=== PATIENT | female | born 2000 | race Two or more races ===

== ENCOUNTER 2023-04-01 12:46 | Observation (INO) ==
[2023-04-01] MEDS ORDERED: ONDANSETRON INJ 2 MG/ML 2 ML VIAL IV STA ×2 (13:53→16:00)
[2023-04-01] MEDS ORDERED: KETOROLAC TROMETHAMINE 15 MG/ML VIAL IV STA (13:53)
[2023-04-01] MEDS ORDERED: SODIUM CHLORIDE 0.9% 1,000 ML IV ONE ×2 (13:53→16:00)
--- NOTE | 2023-04-01 13:59 | Emergency Department Note ---
Impression & Plan Nausea & vomiting, Acute dehydration, Abdominal pain ED Provider Note HISTORY OF PRESENT ILLNESS: Patient is a 22-year-old female presenting with cough, chest pain and nausea and vomiting. Patient reports that she went to the football game 3 days ago and has since developed symptoms. She reports multiple episodes of nausea and vomiting has been unable to keep anything down. She reports she initially started with chest congestion and a nonproductive cough. Denies any fevers at home. Reports generalized body aches. Currently complaining of generalized chest pain and generalized abdominal pain. Reports he has been unable to tolerate oral intake over the last few days. Denies any dysuria or hematuria. She is on OCPs. Reports no recent sick contact exposures. Patient reports she is on active chemotherapy for a clinical trial for medullary thyroid cancer. ROS: as above PHYSICAL EXAM: Constitutional: Patient appears in no acute distress. HENT: Head: Normocephalic and atraumatic. Eyes: EOMI, PERRL Mouth/Throat: Mucous membranes moist. Neck: Trachea midline. Neck supple. Cardiovascular: RRR, No murmurs, rubs or gallops. Intact distal pulses. Pulmonary/Chest: No respiratory distress. Breath sounds clear and equal bilaterally. No wheezes or rales. Abdominal: Abdomen soft, no rebound or guarding. Generalized TTP Musculoskeletal: No edema, tenderness or deformity noted. Skin: Warm and dry. No rash, erythema, pallor or cyanosis Psychiatric: Appropriate mood and affect for situation. Neurological: Alert and keenly responsive. CN II-XII grossly intact, moving all extremities equally and fully. MDM: - Vitals signs stable - History obtained via patient. Patient presents with cough, chest pain and nausea. Patient reports she was around multiple people 3 days ago and has since developed congestion and cough symptoms. She reports she had chest pain and feeling short of breath and has since developed body aches, nausea and vomiting. Reports has been unable to tolerate oral intake over the last few days. States she is actively on chemotherapy for a clinical trial for medullary thyroid cancer. Denies any fevers - Chronic conditions affecting care: medullary thyroid cancer - Differential diagnoses include, but are not limited to: Dehydration; electrolyte abnormality; appendicitis; PE; pneumonia; viral syndrome - Order placed for continuous cardiac monitoring. At this time, monitor showed rate of 75 bpm with normal sinus rhythm, per my interpretation. - External medical records reviewed. - EKG reviewed by myself showed normal sinus rhythm. Rate 72 bpm. QTc 418. No acute ischemic changes. - Laboratory workup interpreted by myself showed normal WBC; negative dimer; normal electrolytes; slightly elevated anion (12); normal troponin - CT abdomen/pelvis with IV contrast showed trace left pleural effusion and trace pericardial effusion. Also noted to have a small amount of ascites. No evidence of a bowel obstruction and a normal appendix are seen. - Viral respiratory panel negative for acute infection - CXR negative for pneumonia, per my interpretation. Radiologist notes peribronchial thickening bilaterally consistent with viral pneumonia. - Patient given 1L NS, 4 mg IV zofran and 15 mg IV toradol. On reassessment, patient is still complaining of nausea. She was given additional 1L NS and 4 mg IV zofran. On reassessment, patient is still complaining of nausea and had an episode of vomiting. She does not feel comfortable to be discharged home with oral antiemetics and scheduling for outpatient echo. - Discussion was had with public health social worker about patient's case and need for admission. - Hospitalist consulted for admission. - Patient mated to inpatient [facility] hospitalist service for further evaluation and management ASSESSMENT AND PLAN: Diagnosis: Abdominal pain; nausea and vomiting; acute dehydration; trace pleural effusion Plan: admit Past Med/Surg History Social History Smoking Status: Never smoker Feels Safe at Home: Yes Results & Data (ED) Vital Signs Vital Signs - 24 hr 04/01/23 13:00 04/01/23 13:50 04/01/23 14:04 Temperature 36.8 C Temperature Source Temporal Artery Scan Pulse Rate 105 H Pulse Rate [Apical] 78 74 Respiratory Rate 18 18 18 Respiratory Effort / Characteristics Non-Labored Respiratory Depth Normal Normal Normal Blood Pressure 119/83 Blood Pressure [Left Arm] 129/92 Blood Pressure Mean 95 Blood Pressure Mean [Left Arm] 104 Pulse Oximetry 99 99 Oxygen Delivery Method Room Air Room Air Sepsis Recent Fever Within 48 Hours No Sepsis New/Unexplained Change in Mental Status No Sepsis Action Taken by Nursing No Action Required 04/01/23 13:59 Temperature Temperature Source Pulse Rate 83 Pulse Rate [Apical] Respiratory Rate Respiratory Effort / Characteristics Respiratory Depth Blood Pressure Blood Pressure [Left Arm] Blood Pressure Mean Blood Pressure Mean [Left Arm] Pulse Oximetry Oxygen Delivery Method Sepsis Recent Fever Within 48 Hours Sepsis New/Unexplained Change in Mental Status Sepsis Action Taken by Nursing Laboratory Data 04/01/23 13:45 04/01/23 13:45 Lab Results 04/01/23 04/01/23 04/01/23 Range/Units 13:45 13:45 13:45 WBC 5.32 (4.8-10.8) K/ul RBC 5.44 H (4.20-5.40) M/uL Hgb 16.4 H (12.0-16.0) g/dl Hct 49.0 H (37.0-47.0) % MCV 90.1 (80.0-100.0) fL MCH 30.1 (25.0-34.0) pg MCHC 33.5 (32.0-36.0) g/dL RDW Std Deviation 46.7 H (36.4-46.3) fL RDW Coeff of Brandon 14.1 (11.5-14.5) % Plt Count 331 (130-400) K/uL MPV 9.2 L (9.4-12.4) fL Immature Gran % (Auto) 0.0 % Neut % (Auto) 71.4 % Lymph % (Auto) 22.6 % [place] % (Auto) 5.6 % Eos % (Auto) 0.2 % Baso % (Auto) 0.2 % Neut # (Auto) 3.80 (1.40-6.50) K/uL Lymph # (Auto) 1.20 (1.20-3.40) K/uL [place] # (Auto) 0.30 (0.11-0.59) K/uL Eos # (Auto) 0.01 (0.00-0.50) K/uL Baso # (Auto) 0.01 (0.00-0.20) K/uL Immature Gran # (Auto) 0.00 L (0.01-0.20) K/uL D-Dimer 210 (0-500) ug/L FEU Sodium (136-145) mmol/L Potassium (3.5-5.1) mmol/L Chloride (98-107) mmol/L Carbon Dioxide (21-32) mmol/L Anion Gap (3-11) BUN (6-23) mg/dl Creatinine (0.6-1.2) mg/dl Est Cr Clr Drug Dosing ml/min Est GFR ( Amer) ml/min Est GFR (Non-Af Amer) ml/min BUN/Creatinine Ratio (10-20) Glucose (70-99(Fasting)) mg/dl Calcium (8.6-10.3) mg/dl Total Bilirubin (0.2-1.0) mg/dl AST (13-39) U/L ALT (7-52) U/L Alkaline Phosphatase (34-104) U/L Troponin I High Sens (0-14) pg/ml Total Protein (6.0-8.3) gm/dl Albumin (3.4-5.0) gm/dl Globulin (2.5-4.0) gm/dl Albumin/Globulin Ratio (0.9-2) Adenovirus (PCR) Not Detected (NotDetected) B. pertussis DNA (PCR) Not Detected (NotDetected) B.parapertussis DNA PCR Not Detected (NotDetected) C. pneumoniae DNA (PCR) Not Detected (NotDetected) Coronavirus OC43 (PCR) Not Detected (NotDetected) Coronavirus HKU1 (PCR) Not Detected (NotDetected) Coronavirus 229E (PCR) Not Detected (NotDetected) SARS-CoV-2 (PCR) Not Detected (NotDetected) Coronavirus NL63 (PCR) Not Detected (NotDetected) Human Metapneumovir PCR Not Detected (NotDetected) Influenza Type A (PCR) Not Detected (NotDetected) Influenza Type B (PCR) Not Detected (NotDetected) M. pneumoniae (PCR) Not Detected (NotDetected) Parainfluenza 1 (PCR) Not Detected (NotDetected) Parainfluenza 2 (PCR) Not Detected (NotDetected) Parainfluenza 3 (PCR) Not Detected (NotDetected) Parainfluenza 4 (PCR) Not Detected (NotDetected) RSV (PCR) Not Detected (NotDetected) Entero/Rhino (PCR) Not Detected (NotDetected) 04/01/23 Range/Units 13:45 WBC (4.8-10.8) K/ul RBC (4.20-5.40) M/uL Hgb (12.0-16.0) g/dl Hct (37.0-47.0) % MCV (80.0-100.0) fL MCH (25.0-34.0) pg MCHC (32.0-36.0) g/dL RDW Std Deviation (36.4-46.3) fL RDW Coeff of Brandon (11.5-14.5) % Plt Count (130-400) K/uL MPV (9.4-12.4) fL Immature Gran % (Auto) % Neut % (Auto) % Lymph % (Auto) % [place] % (Auto) % Eos % (Auto) % Baso % (Auto) % Neut # (Auto) (1.40-6.50) K/uL Lymph # (Auto) (1.20-3.40) K/uL [place] # (Auto) (0.11-0.59) K/uL Eos # (Auto) (0.00-0.50) K/uL Baso # (Auto) (0.00-0.20) K/uL Immature Gran # (Auto) (0.01-0.20) K/uL D-Dimer (0-500) ug/L FEU Sodium 137 (136-145) mmol/L Potassium 3.7 (3.5-5.1) mmol/L Chloride 99 (98-107) mmol/L Carbon Dioxide 26 (21-32) mmol/L Anion Gap 12 H (3-11) BUN 7 (6-23) mg/dl Creatinine 0.79 (0.6-1.2) mg/dl Est Cr Clr Drug Dosing 71.1 ml/min Est GFR ( Amer) 124.0 ml/min Est GFR (Non-Af Amer) 107.0 ml/min BUN/Creatinine Ratio 8.9 L (10-20) Glucose 88 (70-99(Fasting)) mg/dl Calcium 10.0 (8.6-10.3) mg/dl Total Bilirubin 1.1 H (0.2-1.0) mg/dl AST 19 (13-39) U/L ALT 9 (7-52) U/L Alkaline Phosphatase 75 (34-104) U/L Troponin I High Sens < 2.3 (0-14) pg/ml Total Protein 8.4 H (6.0-8.3) gm/dl Albumin 4.7 (3.4-5.0) gm/dl Globulin 3.7 (2.5-4.0) gm/dl Albumin/Globulin Ratio 1.3 (0.9-2) Adenovirus (PCR) (NotDetected) B. pertussis DNA (PCR) (NotDetected) B.parapertussis DNA PCR (NotDetected) C. pneumoniae DNA (PCR) (NotDetected) Coronavirus OC43 (PCR) (NotDetected) Coronavirus HKU1 (PCR) (NotDetected) Coronavirus 229E (PCR) (NotDetected) SARS-CoV-2 (PCR) (NotDetected) Coronavirus NL63 (PCR) (NotDetected) Human Metapneumovir PCR (NotDetected) Influenza Type A (PCR) (NotDetected) Influenza Type B (PCR) (NotDetected) M. pneumoniae (PCR) (NotDetected) Parainfluenza 1 (PCR) (NotDetected) Parainfluenza 2 (PCR) (NotDetected) Parainfluenza 3 (PCR) (NotDetected) Parainfluenza 4 (PCR) (NotDetected) RSV (PCR) (NotDetected) Entero/Rhino (PCR) (NotDetected) Administered Medications Sodium Chloride (Nss) 1,000 mls @ 999 mls/hr IV .Q1H1M ONE Stop: 04/01/23 17:00 Last Admin: 04/01/23 16:04 Dose: 999 mls/hr Documented By: DAVID Discontinued Medications Sodium Chloride (Nss) 1,000 mls @ 999 mls/hr IV .Q1H1M ONE Stop: 04/01/23 14:53 Last Infusion: 04/01/23 15:04 Dose: 0 mls/hr Documented By: Admin: 04/01/23 14:02 Dose: 999 mls/hr Documented By: SAVI Ioversol (Optiray 320 100ml) 90 ml IV ONCE ONE Stop: 04/01/23 15:12 Last Admin: 04/01/23 15:11 Dose: 90 ml Documented By: MOONF Ketorolac Tromethamine (Ketorolac Tromethamine 15 Mg/Ml Vial) 15 mg IV NOW STA Stop: 04/01/23 13:54 Last Admin: 04/01/23 14:02 Dose: 15 mg Documented By: SAVI Ondansetron HCl (Ondansetron Inj 2 Mg/Ml 2 Ml Vial) 4 mg IV NOW STA Stop: 04/01/23 13:54 Last Admin: 04/01/23 14:02 Dose: 4 mg Documented By: SAVI Ondansetron HCl (Ondansetron Inj 2 Mg/Ml 2 Ml Vial) 4 mg IV NOW STA Stop: 04/01/23 16:01 Last Admin: 04/01/23 16:03 Dose: 4 mg Documented By: DAVID Imaging Data Radiologist's Impression: Abdomen/Pelvis CT 04/01/23 13:[address] WITH IV CONTRAST CT DOSE: 307.07 mGy.cm HISTORY: abdominal pain; vomiting TECHNIQUE: Multiaxial CT images of the abdomen and pelvis were performed following the use of intravenous contrast. A dose lowering technique was utilized adhering to the principles of ALARA. COMPARISON STUDY: None. FINDINGS: There is a trace left pleural effusion. There are emphysematous changes within the lung bases. Mild interstitial thickening within the right midlung zone is noted. No pneumoperitoneum. No pneumatosis. The right sacroiliac joint is fused. There are severe levoscoliosis of the visualized thoracolumbar spine with posterior spinal rods. No acute fractures identified. The spinal rods result in metallic artifact throughout the abdomen and pelvis resulting in suboptimal evaluation. Trace pericardial effusion. There are small bilateral hip effusions. Mild body wall edema. The liver, gallbladder, pancreas, spleen, left adrenal gland, and kidneys appear unremarkable. No hydronephrosis. The right adrenal gland is not well visualized. The main portal vein is patent. No retroperitoneal lymphadenopathy. Normal caliber abdominal aorta. No pelvic lymphadenopathy. There is a small amount of fluid within the deep pelvis. The bladder is distended. No bladder wall thickening. The uterus and bilateral adnexa are within normal limits. Questionable thickening of the colon is likely due to underdistention. Normal appendix. No dilated loops of bowel to suggest an obstruction. Mild diffuse mesenteric edema is noted. IMPRESSION: 1. No evidence for bowel obstruction. 2. Normal appendix. 3. Trace left pleural effusion, trace pericardial effusion, mild body wall edema, mild mesenteric edema, and a small amount of ascites. 4. Questionable thickening of the colon is likely due to underdistention. 5. Linear densities within the right midlung zone may represent chronic scarring. Mild congestive change or an interstitial pneumonitis could also have a similar appearance. 6. Emphysema. 7. Additional findings as described above. ACT 112: Negative or not required by law. Electronically signed by: Mango Cordero M.D. 04/01/2023 4:18 PM Chest X-Ray 04/01/23 15:22 XR chest 1V portable CLINICAL HISTORY: cough; congestion TECHNIQUE: Single frontal radiograph of the chest was obtained. Comparison: None available at the time of this dictation. FINDINGS: Scoliosis and posterior spinal fixation hardware is seen. The cardiomediastinal silhouette is normal. Faint opacity is in the bilateral mid lungs. Bronchial wall thickening is seen. No evidence of pleural effusion or pneumothorax. IMPRESSION: Peribronchial thickening and mild opacity in the bilateral mid lungs are seen compatible with infectious/inflammatory airways disease or viral pneumonia. ACT 112: Negative or not required by law. Electronically signed by: Vladislav Christina M.D. 04/01/2023 3:57 PM Discharge Plan Visit Data Chief Complaint: Illness Stated Complaint: CHEST PAIN, COUGH, PUKING, NAUSEA ED Provider: Claudia Moctezuma Discharge Problem: Nausea & vomiting, Acute dehydration, Abdominal pain Patient Disposition: Home - Self-Care Discharge Instructions Krames/Other Patient Handouts: ED Abd Pain Unk Cause Inf Activity Restrictions/Additional Instructions: Recommend staying well-hydrated over the next few days. Recommend alternating Tylenol and ibuprofen for pain management. Please return to the emergency department if you develop a persistently elevated fever, inability to tolerate oral intake, worsening chest pain or shortness of breath, or any new or worsening symptoms. Please follow closely with your primary care provider. Forms Stand Alone Forms: [facility], [facility] Emergency Department, Important Visit Information Referrals Referrals: [facility] [Primary Care Provider] -
[2023-04-01 14:07] LABS: Basophils # (auto) 0.01 K/uL (0.00-0.20); Basophils % (auto) 0.2 %; Eosinophils # (auto) 0.01 K/uL (0.00-0.50); Eosinophils % (auto) 0.2 %; Hemoglobin 16.4 g/dl (12.0-16.0); Lymphocytes % (auto) 22.6 %; Mean Corpuscular Hemoglobin 30.1 pg (25.0-34.0); Mean Corpuscular Hgb Conc 33.5 g/dL (32.0-36.0); Mean Corpuscular Volume 90.1 fL (80.0-100.0); Mean Platelet Volume 9.2 fL (9.4-12.4); Monocytes % (auto) 5.6 %; Neutrophils % (auto) 71.4 %; Platelet Count 331 K/uL (130-400); RDW Coefficient of Variation 14.1 % (11.5-14.5); RDW Standard Deviation 46.7 fL (36.4-46.3); Red Blood Count 5.44 M/uL (4.20-5.40); White Blood Count 5.32 K/ul (4.8-10.8)
[2023-04-01 14:26] LABS: D Dimer 210 ug/L FEU (0-500)
[2023-04-01 14:28] LABS: Albumin Level 4.7 gm/dl (3.4-5.0); Anion Gap 12 (3-11); Bilirubin,Total 1.1 mg/dl (0.2-1.0); Carbon Dioxide 26 mmol/L (21-32); Chloride 99 mmol/L (98-107); Potassium 3.7 mmol/L (3.5-5.1); Sodium 137 mmol/L (136-145)
[2023-04-01 14:33] LABS: Troponin I High Sensitivity < 2.3 pg/ml (0-14)
[2023-04-01 14:34] LABS: Alanine Aminotransferase 9 U/L (7-52); Albumin Globulin Ratio 1.3 (0.9-2); Alkaline Phosphatase 75 U/L (34-104); Aspartate Aminotransferase 19 U/L (13-39); BUN Creatinine Ratio 8.9 (10-20); Blood Urea Nitrogen 7 mg/dl (6-23); Creatinine Clr Calc Pharmacy 71.1 ml/min; Globulin 3.7 gm/dl (2.5-4.0); Glucose 88 mg/dl (70-99(Fasting)); Total Protein 8.4 gm/dl (6.0-8.3)
[2023-04-01 14:55] LABS: Adenovirus PCR Not Detected (NotDetected); Bordetella parapertussis PCR Not Detected (NotDetected); Bordetella pertussis PCR Not Detected (NotDetected); Chlamydia pneumoniae PCR Not Detected (NotDetected); Coronavirus 229E PCR Not Detected (NotDetected); Coronavirus CoV-2 (COVID19)PCR Not Detected (NotDetected); Coronavirus HKU1 PCR Not Detected (NotDetected); Coronavirus NL63 PCR Not Detected (NotDetected); Coronavirus OC43PCR Not Detected (NotDetected); Human Metapneumovirus PCR Not Detected (NotDetected); Influenza A PCR Not Detected (NotDetected); Influenza B PCR Not Detected (NotDetected); Mycoplasma pneumoniae PCR Not Detected (NotDetected); Parainfluenza Virus 1 PCR Not Detected (NotDetected); Parainfluenza Virus 2 PCR Not Detected (NotDetected); Parainfluenza Virus 3 PCR Not Detected (NotDetected); Parainfluenza Virus 4 PCR Not Detected (NotDetected); Respiratory Syncytial VirusPCR Not Detected (NotDetected); Rhinovirus/Enterovirus PCR Not Detected (NotDetected)
[2023-04-01] MEDS ORDERED: OPTIRAY 320 100ml IV ONE (15:11)
--- NOTE | 2023-04-01 15:58 | XRay Report ---
XR chest 1V portable CLINICAL HISTORY: cough; congestion TECHNIQUE: Single frontal radiograph of the chest was obtained. Comparison: None available at the time of this dictation. FINDINGS: Scoliosis and posterior spinal fixation hardware is seen. The cardiomediastinal silhouette is normal. Faint opacity is in the bilateral mid lungs. Bronchial wall thickening is seen. No evidence of pleur al effusion or pneumothorax. IMPRESSION: Peribronchial thickening and mild opacity in the bilateral mid lungs are seen compatible with infecti ous/inflammatory airways disease or viral pneumonia. ACT 112: Negative or not required by law. Electronically signed by: Vladislav Christina M.D. 04/01/2023 3:57 PM
--- NOTE | 2023-04-01 16:19 | CT Scan Report ---
ABDOMEN AND PELVIS CT WITH IV CONTRAST CT DOSE: 307.07 mGy.cm HISTORY: abdominal pain; vomiting TECHNIQUE: Multiaxial CT images of the abdomen and pelvis were performed following the use of intrave nous contrast. A dose lowering technique was utilized adhering to the principles of ALARA. COMPARISON STUDY: None. FINDINGS: There is a trace left pleural effusion. There are emphysematous changes within the lung bas es. Mild interstitial thickening within the right midlung zone is noted. No pneumoperitoneum. No pneu matosis. The right sacroiliac joint is fused. There are severe levoscoliosis of the visualized thorac olumbar spine with posterior spinal rods. No acute fractures identified. The spinal rods result in me tallic artifact throughout the abdomen and pelvis resulting in suboptimal evaluation. Trace pericardi al effusion. There are small bilateral hip effusions. Mild body wall edema. The liver, gallbladder, p ancreas, spleen, left adrenal gland, and kidneys appear unremarkable. No hydronephrosis. The right ad renal gland is not well visualized. The main portal vein is patent. No retroperitoneal lymphadenopath y. Normal caliber abdominal aorta. No pelvic lymphadenopathy. There is a small amount of fluid within the deep pelvis. The bladder is distended. No bladder wall thickening. The uterus and bilateral adne xa are within normal limits. Questionable thickening of the colon is likely due to underdistention. N ormal appendix. No dilated loops of bowel to suggest an obstruction. Mild diffuse mesenteric edema is noted. IMPRESSION: 1. No evidence for bowel obstruction. 2. Normal appendix. 3. Trace left pleural effusion, trace pericardial effusion, mild body wall edema, mild mesenteric krishna ma, and a small amount of ascites. 4. Questionable thickening of the colon is likely due to underdistention. 5. Linear densities within the right midlung zone may represent chronic scarring. Mild congestive meghan nge or an interstitial pneumonitis could also have a similar appearance. 6. Emphysema. 7. Additional findings as described above. ACT 112: Negative or not required by law. Electronically signed by: Mango Cordero M.D. 04/01/2023 4:18 PM
[2023-04-01 17:05] LABS: Appearance Urine Cloudy (Clear); Bacteria Urine Automated 3+ (Negative); Bilirubin Urine Negative (Negative); Blood Urine Negative (Negative); Color Urine Yellow; Epithelial Cell Urine Auto >30 /lpf (0-5); Glucose Urine UA Negative (Negative); Ketones Urine 2+ (Negative); Leukocyte Esterase Urine 1+ (Negative); Nitrite Urine Negative (Negative); Protein Urine Negative (Negative); RBC Urine Automated 0-4 /hpf (0-4); Specific Gravity Urine 1.043 (1.000-1.030); Urobilinogen Urine Negative (Negative); WBC Urine Automated >30 /hpf (0-5)
[2023-04-01] MEDS ORDERED: FAMOTIDINE 20 MG in SYRINGE 3 ML IV STA (17:21)
[2023-04-01 17:36] LABS: Cast Urine Automated 0 /lpf (0-5)
[2023-04-01 17:37] LABS: Pregnancy Test, Urine Negative (Negative)
[2023-04-01] MEDS ORDERED: PROCHLORPERAZINE 1 ML IV ONE (18:26)
[2023-04-01 18:32] LABS: Thyroid Stimulating Hormone 103.163 uIu/ml (0.300-4.500)
--- NOTE | 2023-04-01 18:41 | History & Physical Report ---
Date of Service April 01, 2023 Assessment & Plan (1) Acute dehydration: Plan: -Acute dehydration 2/2 persistent NBNB emesis likely due to viral gastroenteritis -RVP negative on admission -Hemodynamically stable, no hypotension since arrival -Currently without electrolyte abnormalities -S/p 2L NSS fluid repletion in ER -LR 125 cc/hr ongoing for now -Trend BMP, Mg (2) Nausea & vomiting: Plan: -Likely secondary to viral GI illness as above -Poor response to Zofran PRN, we will try Compazine 5 mg IV q6h PRN for now (3) Abdominal pain: Plan: -Likely secondary to viral GI illness as above -CTAP without acute findings underlying abdominal pain- nonspecific inflammatory findings such as edema and colonic distention -Tylenol 1000 mg IV q8h PRN for pain (4) Medullary thyroid carcinoma: Plan: -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 Pt states her TSH levels have always been high and ~100+ regularly as well -Continue levothyroxine (6) Chest pain: Plan: -Chest tightness exacerbated by cough with normal EKG + negative troponin -Unlikely to represent ACS, suspect secondary to viral illness -Continue to monitor for recurrence (7) History of spinal fusion for scoliosis: Plan: -Noted, stable -Continue Lyrica Plan FENGI: Clear liquids Code status: Full DVT prophylaxis: Low-risk, ambulation Isolation: None Disposition: Medical/surgical History of Present Illness Chief Complaint: Nausea/vomiting Primary Care Provider: [facility] Pt is 22 yo F with PMH medullary thyroid cancer with metastasis to lungs s/p thyroidectomy in 2008 and now on maintenance chemotherapy with selpercatinib since 2017, hypothyroidism, scoliosis s/p spinal fusion surgery in 2020 with subsequent neuropathy presenting with nausea and vomiting. Pt states she was in her usual state of health recently. She did attend the football game on 03/28 and reports onset of nausea starting in the project development engineer on 04/01. Later in the afternoon the nausea worsened and she experienced associated generalized abdominal pain of 5/10 severity, midsternal 7/10 chest tightness, dry cough, diffuse body aches and reduced appetite. She soon had several bouts of NBNB emesis, reports every 20 minutes and "dozens" of episodes. Denies fevers, chills, no sick contacts or recent travel, though she reports some fellow game attendees may have been ill. She is adherent to her BID selpercatinib and follows with [facility] in [place], last seen in 02/2023 without issue and due for f/u in 05/2023. She did have very similar symptoms 1 year prior in spring and felt better after receiving IV fluids in ER. Pt arrived to ER hemodynamically stable. Initial evaluation significant for TSH 103. CBC, CMP otherwise unremarkable. D-dimer, troponin, RVP negative. EKG NSR, no ST changes. CXR suggestive of viral pneumonia. CTAP w/ trace L pleural effusi on, trace pericardial effusion, mild body wall + mesenteric edema, small ascites, linear densities of R midlung representing chronic scarring vs interstitial pneumonitis, emphysema. ER interventions include 1L NSS bolus x2, Zofran 4 mg IV x2, Toradol 15 mg IV, famotidine 20 mg IV, Compazine 5 mg IV. At present, pt reports no relief from Zofran, no particular change in her symptoms. Has not had any worsening or new symptoms. Reports Zofran typically does not reduce her nausea once it begins. Allergies Allergy/AdvReac Type Severity Reaction Status Date / Time Iodinated Contrast Media Allergy Intermediate Hives Verified 04/01/23 17:12 latex Allergy Intermediate CATHETER--REDNESS, Verified 04/01/23 17:12 INFLAMATION Home Medications Medication Instructions Recorded Confirmed Type Control Pill 1 tab PO DAILY 04/01/23 04/01/23 History Unknown Chemo Drug 1 tab PO BID 04/01/23 04/01/23 History levothyroxine 112 mcg tablet 112 mcg PO 2XWK 04/01/23 04/01/23 History pregabalin 300 mg capsule 600 mg PO HS 04/01/23 04/01/23 History Past Med/Surg History Social History Smoking Status: Never smoker Second Hand Exposure: No; Do You Dip or Chew Tobacco: No; Hx Alcohol Use: No Hx Substance Use: No Preferred Language: Micronesian Communication Ability: Effective Quilt Sewer Required: No Beliefs That Will Affect Care: None Current Living Situation: Other Current Living Situation Comment: dorm Other Information That Helps Us Care for You: No Feels Safe at Home: Yes Safety Concerns: Feels Safe At This Time Assistive Devices: None Review of Systems Review of Systems: Per HPI Physical Exam Physical Exam: General: tired-appearing, no acute distress HEENT: PERRL, EOMI, conjunctivae clear without injection, anicteric sclerae, dry mucous membranes, clear oropharynx without exudate or erythema Neck: supple, trachea midline, no thyromegaly, no JVD, no cervical lymphaden opathy CV: RRR, normal S1 and S2, no murmurs Resp: CTAB, no increased work of breathing, no crackles or wheezes Abd: Soft, diffusely tender and greatest in LLQ, nondistended, no guarding or rebound, no hepatosplenomegaly, no fluid wave MSK: Normal bulk of all four extremities Neuro: AOx3, no focal motor or sensory deficits Skin: no rashes or lesions, warm and dry Ext: no LE peripheral edema or erythema, capillary refill <3s in all four extremities, 2+ LE peripheral pulses b/l Results & Data Results & Data Vital Signs (Past 12 Hours) Vital Signs Temp Pulse Pulse Resp BP BP Pulse Ox 04/01/23 18:23 76 04/01/23 16:37 70 18 151/109 H 100 04/01/23 13:59 83 04/01/23 14:04 74 18 129/92 99 04/01/23 13:50 78 18 04/01/23 13:00 36.8 C 105 H 18 119/83 99 O2 Del Method 04/01/23 18:23 04/01/23 16:37 Room Air 04/01/23 13:59 04/01/23 14:04 Room Air 04/01/23 13:50 04/01/23 13:00 Room Air Supervising Physician Co-Signing Physician Notes I personally saw and examined the patient. I verified all koo points and agree with resident physician Dr David Lucero, with the following exceptions and/or additions: 22 year old female presents to the ER with abdominal pain, intractable nausea and vomiting. Similar symptoms previously self limiting and supported with IV fluids and antiemetics. O/E Ill appearing, HS RRR, no murmurs, Chest CTAB, Abdo generalized tenderness, no guarding or rebound A/P Intractable nausea and vomiting - suspect viral gastroenteritis while on her chemotherapy causing much worse symptoms than would otherwise be expected. Self- limiting previous and would expect the same. Generalized edema - suspect this is due to her chemotherapy and shoudl follow up with her oncologist. Asymptomatic bacteruria - no specific urinary complaints, follow up urine culture but given asymptomatic would hold of antibiotics currently Elevated TSH - reportedly chronic per patient, suggest she follows up with her batch freezer operator regarding this, free T4 WNL. Resident Activity Tracking Resident Involvement: Resident Care Provided Care Provided: Adult [facility]
[2023-04-01] MEDS ORDERED: PROCHLORPERAZINE 5 MG/ML 2 ML VIAL IV ONE (18:45)
[2023-04-01 19:03] LABS: T4 Free Thyroxine 0.8 ng/dl (0.61-1.60)
[2023-04-01] MEDS ORDERED: ACETAMINOPHEN 1,000 MG/100 ML VIAL IV STA (19:14)
[2023-04-01] MEDS ORDERED: LORazepam 2 MG/1 ML VIAL IV STA (20:44)
[2023-04-01] MEDS ORDERED: PROCHLORPERAZINE 5 MG/ML 2 ML VIAL IV PRN (22:05)
[2023-04-01] MEDS ORDERED: LACTATED RINGER'S 1,000 ML IV SCH (22:05)
[2023-04-01] MEDS ORDERED: ACETAMINOPHEN 10MG/ML Custom 500 MG in EMPTY BAG 0 ML IV PRN (22:42)
--- NOTE | 2023-04-01 23:05 | Billing Data ---
Date of Service April 01, 2023 Coding Level of Care Code 61530 INT INP/OBS CARE
[2023-04-01] MEDS: PREGABALIN 150 MG CAP PO SCH (23:13)
[2023-04-02] MEDS: LEVOTHYROXINE SODIUM 112 MCG TABLET PO SCH (06:24)
[2023-04-02] MEDS: FAMOTIDINE 20 MG in SYRINGE 3 ML IV SCH ×2 (06:25→18:11)
--- NOTE | 2023-04-02 07:51 | Hospitalist Progress Note ---
Date of Service April 02, 2023 Assessment & Plan (1) Acute dehydration: Plan: -Acute dehydration 2/2 persistent NBNB emesis likely due to viral gastroenteritis -RVP negative on admission -Hemodynamically stable, no hypotension since arrival -S/p 2L NSS fluid repletion in ER -LR 125 cc/hr until improved PO intake -Trend BMP, Mg (2) Nausea & vomiting: Plan: -Likely secondary to viral GI illness as above -Poor response to Zofran PRN, continue Compazine 5 mg IV q6h PRN (3) Abdominal pain: Plan: -Likely secondary to viral GI illness as above -CTAP without acute findings underlying abdominal pain- nonspecific inflammatory findings such as edema and colonic distention -Tylenol 1000 mg IV q8h PRN for pain (4) Medullary thyroid carcinoma: Plan: -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 Pt states her TSH levels have always been high and ~100+ regularly as well -Continue levothyroxine (6) Chest pain: Plan: -Chest tightness exacerbated by cough with normal EKG + negative troponin -Unlikely to represent ACS, suspect secondary to viral illness -Continue to monitor for recurrence (7) History of spinal fusion for scoliosis: Plan: -Noted, stable -Continue Lyrica Plan FENGI: Clear liquids Code status: Full DVT prophylaxis: Low-risk, ambulation Isolation: None Admission and Anticipated Discharge Date Admission Date: April 01, 2023 Supervising Physician Co-Signing Physician Notes I personally examined the patient and verified koo points of history and exam, discussed case, and agree with decision making and plan documented by Dr. Esparza. Patient endorses some improvement of her symptoms however remains fatigued with nausea, denies additional vomiting or diarrhea. Patient in no acute distress, lungs clear b/l to auscultation, regular rate and rhythm, non tender abdomen with palpable mass LUQ (spleen?). Continue supportive measures. Subjective Pt seen at bedside, nauseous this morning, improved when saw her this afternoon. Minimal abdominal pain. Review of Systems Review of Systems: As per above Physical Exam Physical Exam: Constitutional: well-appearing, no acute distress HEENT: NCAT, no conjunctival injection CV: regular rhythm, no murmur appreciated, extremities well-perfused, no LE edema Resp: CTABL, no wheezes/rales/rhonchi appreciated, no increased work of breathing GI: soft, nondistended, nontender MSK: no gross deformities appreciated Skin: warm, dry, no rash appreciated Neuro: alert, oriented, no focal neurologic deficit appreciated Results & Data Results & Data Vital Signs (Past 12 Hours) Vital Signs Temp Pulse Resp BP Pulse Ox O2 Del Method 04/02/23 07:20 36.9 C 86 15 131/91 98 Room Air 04/01/23 22:00 Room Air 04/01/23 22:00 36.6 C 16 116/84 99 Room Air Resident Activity Tracking Resident Involvement: Resident Care Provided Care Provided: Adult Hospital Medicine
[2023-04-02] MEDS: PROCHLORPERAZINE 5 MG in SYRINGE 4 ML IV PRN (08:48)
[2023-04-02] MEDS ORDERED: ONDANSETRON INJ 2 MG/ML 2 ML VIAL IV STA (09:44)
[2023-04-02 09:45] LABS: Hematocrit (blood only) 42.3 % (37.0-47.0); Mean Corpuscular Hemoglobin 29.9 pg (25.0-34.0); Mean Corpuscular Hgb Conc 33.1 g/dL (32.0-36.0); Mean Corpuscular Volume 90.2 fL (80.0-100.0); Platelet Count 259 K/uL (130-400); RDW Coefficient of Variation 13.9 % (11.5-14.5); RDW Standard Deviation 46.2 fL (36.4-46.3); Red Blood Count 4.69 M/uL (4.20-5.40); White Blood Count 4.29 K/ul (4.8-10.8)
[2023-04-02] MEDS: LORazepam 2 MG/1 ML VIAL IV PRN ×2 (09:48→20:56)
[2023-04-02] MEDS: PREGABALIN 150 MG CAP PO SCH ×2 (09:49→20:12)
[2023-04-02 10:11] LABS: Albumin Globulin Ratio 1.4 (0.9-2); Albumin Level 3.8 gm/dl (3.4-5.0); BUN Creatinine Ratio 6.3 (10-20); Bilirubin,Total 1.1 mg/dl (0.2-1.0); Calcium 8.7 mg/dl (8.6-10.3); Creatinine Clr Calc Pharmacy 90.3 ml/min; Est GFR (African American) 148.6 ml/min; Est GFR (Non-African American) 128.2 ml/min; Globulin 2.8 gm/dl (2.5-4.0); Magnesium 2.1 mg/dl (1.7-2.4); Potassium 3.4 mmol/L (3.5-5.1); Total Protein 6.6 gm/dl (6.0-8.3)
--- NOTE | 2023-04-02 18:07 | Electrocardiogram Report ---
Test Reason : Blood Pressure : / mmHG Vent. Rate : 072 BPM Atrial Rate : 072 BPM P-R Int : 124 ms QRS Dur : 076 ms QT Int : 382 ms P-R-T Axes : 047 119 038 degrees QTc Int : 418 ms Normal sinus rhythm Right axis deviation T wave abnormality, consider anterior ischemia Abnormal ECG No previous ECGs available Confirmed by Daniel Escobar ([id number]) on 04/02/2023 6:07:31 PM Referred By: REFERRED SELF Confirmed By:Mk Escobar
--- NOTE | 2023-04-02 18:10 | Electrocardiogram Report ---
Test Reason : Blood Pressure : / mmHG Vent. Rate : 074 BPM Atrial Rate : 074 BPM P-R Int : 146 ms QRS Dur : 072 ms QT Int : 378 ms P-R-T Axes : 072 127 051 degrees QTc Int : 419 ms Normal sinus rhythm Right axis deviation Low voltage QRS Nonspecific T wave abnormality Abnormal ECG When compared with ECG of 01-APR-2023 13:37, (unconfirmed) No significant change was found Confirmed by Daniel Escobar ([id number] on 04/02/2023 6:10:32 PM Referred By: REFERRED SELF Confirmed By:Mk Escobar
[2023-04-02] MEDS: LACTATED RINGER'S 1,000 ML IV SCH (18:13)
[2023-04-02] MEDS: PATIENT'S OWN ORAL CONTRACEPTIVE PO SCH (18:46)
[2023-04-03] MEDS: LACTATED RINGER'S 1,000 ML IV SCH (03:49)
[2023-04-03] MEDS: FAMOTIDINE 20 MG in SYRINGE 3 ML IV SCH (05:43)
[2023-04-03] MEDS: LEVOTHYROXINE SODIUM 112 MCG TABLET PO SCH (05:43)
[2023-04-03 07:38] LABS: Basophils # (auto) 0.02 K/uL (0.00-0.20); Basophils % (auto) 0.5 %; Eosinophils # (auto) 0.05 K/uL (0.00-0.50); Eosinophils % (auto) 1.3 %; Hematocrit (blood only) 38.5 % (37.0-47.0); Hemoglobin 13.1 g/dl (12.0-16.0); Lymphocytes # (auto) 1.45 K/uL (1.20-3.40); Lymphocytes % (auto) 37.6 %; Mean Corpuscular Hemoglobin 30.4 pg (25.0-34.0); Mean Corpuscular Volume 89.3 fL (80.0-100.0); Mean Platelet Volume 9.4 fL (9.4-12.4); Monocytes # (auto) 0.38 K/uL (0.11-0.59); Monocytes % (auto) 9.8 %; Neutrophils # (auto) 1.96 K/uL (1.40-6.50); Neutrophils % (auto) 50.8 %; Platelet Count 286 K/uL (130-400); RDW Coefficient of Variation 13.9 % (11.5-14.5); RDW Standard Deviation 45.6 fL (36.4-46.3); Red Blood Count 4.31 M/uL (4.20-5.40); White Blood Count 3.86 K/ul (4.8-10.8)
[2023-04-03 07:50] LABS: Alanine Aminotransferase 5 U/L (7-52); Albumin Globulin Ratio 1.4 (0.9-2); Albumin Level 3.6 gm/dl (3.4-5.0); Alkaline Phosphatase 45 U/L (34-104); Anion Gap 7 (3-11); Aspartate Aminotransferase 13 U/L (13-39); Bilirubin,Total 0.9 mg/dl (0.2-1.0); Blood Urea Nitrogen 5 mg/dl (6-23); Calcium 8.5 mg/dl (8.6-10.3); Carbon Dioxide 25 mmol/L (21-32); Chloride 104 mmol/L (98-107); Creatinine Clr Calc Pharmacy 113.8 ml/min; Est GFR (African American) > 150.0 ml/min; Est GFR (Non-African American) 138.4 ml/min; Globulin 2.6 gm/dl (2.5-4.0); Glucose 71 mg/dl (70-99(Fasting)); Magnesium 1.9 mg/dl (1.7-2.4); Potassium 3.5 mmol/L (3.5-5.1); Sodium 136 mmol/L (136-145); Total Protein 6.2 gm/dl (6.0-8.3)
[2023-04-03] MEDS: PROCHLORPERAZINE 5 MG in SYRINGE 4 ML IV PRN (08:59)
[2023-04-03] MEDS: PREGABALIN 150 MG CAP PO SCH (09:48)
[2023-04-03] MEDS: LORazepam 2 MG/1 ML VIAL IV PRN (09:48)
[2023-04-03] MEDS ORDERED: Nursing to Pharmacy Communication SCH (10:45)
[2023-04-03] MEDS: PATIENT'S OWN ORAL CONTRACEPTIVE PO SCH (10:48)
--- NOTE | 2023-04-03 11:15 | Discharge Summary ---
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 Pt states she was in her usual state of health recently. She did attend the football game on 03/28 and reports onset of nausea starting in the people manager on 04/01. Later in the afternoon the nausea worsened and she experienced associated generalized abdominal pain of 5/10 severity, midsternal 7/10 chest tightness, dry cough, diffuse body aches and reduced appetite. She soon had several bouts of NBNB emesis, reports every 20 minutes and "dozens" of episodes. Denies fevers, chills, no sick contacts or recent travel, though she reports some fellow game attendees may have been ill. She is adherent to her BID selpercatinib and follows with [facility] in [place], last seen in 02/2023 without issue and due for f/u in 05/2023. She did have very similar symptoms 1 year prior in spring and felt better after receiving IV fluids in ER. Pt arrived to ER hemodynamically stable. Initial evaluation significant for TSH 103. CBC, CMP otherwise unremarkable. D-dimer, troponin, RVP negative. EKG NSR, no ST changes. CXR suggestive of viral pneumonia. CTAP w/ trace L pleural effusion, trace pericardial effusion, mild body wall + mesenteric edema, small ascites, linear densities of R midlung representing chronic scarring vs interstitial pneumonitis, emphysema. ER interventions include 1L NSS bolus x2, Zofran 4 mg IV x2, Toradol 15 mg IV, famotidine 20 mg IV, Compazine 5 mg IV. At present, pt reports no relief from Zofran, no particular change in her symptoms. Has not had any worsening or new symptoms. Reports Zofran typically does not reduce her nausea once it begins. Principal Diagnosis Viral gastroenteritis Discharge Exam Constitutional: well-appearing, no acute distress HEENT: NCAT, no conjunctival injection CV: regular rhythm, no murmur appreciated, extremities well-perfused, no LE edema Resp: CTABL, no wheezes/rales/rhonchi appreciated, no increased work of breathing GI: soft, nondistended, nontender MSK: no gross deformities appreciated Skin: warm, dry, no rash appreciated Neuro: alert, oriented, no focal neurologic deficit appreciated Discharge Data Allergies Allergy/AdvReac Type Severity Reaction Status Date / Time Iodinated Contrast Media Allergy Intermediate Hives Verified 04/01/23 17:12 latex Allergy Intermediate CATHETER--REDNESS, Verified 04/01/23 17:12 INFLAMATION Consultations 04/01/23 16:33 ED Decision to Admit Stat Ordered Studies 04/01/23 13:57 CT Abd and Pelvis [CT abd pelvis IV con only] Stat Laboratory Results WBC 3.86 K/ul (4.8-10.8) L 04/03/23 06:49 RBC 4.31 M/uL (4.20-5.40) 04/03/23 06:49 Hgb 13.1 g/dl (12.0-16.0) 04/03/23 06:49 Hct 38.5 % (37.0-47.0) 04/03/23 06:49 MCV 89.3 fL (80.0-100.0) 04/03/23 06:49 MCH 30.4 pg (25.0-34.0) 04/03/23 06:49 MCHC 34.0 g/dL (32.0-36.0) 04/03/23 06:49 RDW Std Deviation 45.6 fL (36.4-46.3) 04/03/23 06:49 RDW Coeff of [place] 13.9 % (11.5-14.5) 04/03/23 06:49 Plt Count 286 K/uL (130-400) 04/03/23 06:49 MPV 9.4 fL (9.4-12.4) 04/03/23 06:49 Immature Gran % (Auto) 0.0 % 04/03/23 06:49 Neut % (Auto) 50.8 % 04/03/23 06:49 Lymph % (Auto) 37.6 % 04/03/23 06:49 [place] % (Auto) 9.8 % 04/03/23 06:49 Eos % (Auto) 1.3 % 04/03/23 06:49 Baso % (Auto) 0.5 % 04/03/23 06:49 Neut # (Auto) 1.96 K/uL (1.40-6.50) 04/03/23 06:49 Lymph # (Auto) 1.45 K/uL (1.20-3.40) 04/03/23 06:49 [place] # (Auto) 0.38 K/uL (0.11-0.59) 04/03/23 06:49 Eos # (Auto) 0.05 K/uL (0.00-0.50) 04/03/23 06:49 Baso # (Auto) 0.02 K/uL (0.00-0.20) 04/03/23 06:49 Immature Gran # (Auto) 0.00 K/uL (0.01-0.20) L 04/03/23 06:49 D-Dimer 210 ug/L FEU (0-500) 04/01/23 13:45 Sodium 136 mmol/L (136-145) 04/03/23 06:49 Potassium 3.5 mmol/L (3.5-5.1) 04/03/23 06:49 Chloride 104 mmol/L (98-107) 04/03/23 06:49 Carbon Dioxide 25 mmol/L (21-32) 04/03/23 06:49 Anion Gap 7 (3-11) 04/03/23 06:49 BUN 5 mg/dl (6-23) L 04/03/23 06:49 Creatinine 0.50 mg/dl (0.6-1.2) L 04/03/23 06:49 Est Cr Clr Drug Dosing 113.8 ml/min 04/03/23 06:49 Est GFR ( Amer) > 150.0 ml/min 04/03/23 06:49 Est GFR (Non-Af Amer) 138.4 ml/min 04/03/23 06:49 BUN/Creatinine Ratio 10.0 (10-20) 04/03/23 06:49 Glucose 71 mg/dl (70-99(Fasting)) 04/03/23 06:49 Calcium 8.5 mg/dl (8.6-10.3) L 04/03/23 06:49 Magnesium 1.9 mg/dl (1.7-2.4) 04/03/23 06:49 Total Bilirubin 0.9 mg/dl (0.2-1.0) 04/03/23 06:49 AST 13 U/L (13-39) 04/03/23 06:49 ALT 5 U/L (7-52) L 04/03/23 06:49 Alkaline Phosphatase 45 U/L (34-104) 04/03/23 06:49 Troponin I High Sens < 2.3 pg/ml (0-14) 04/01/23 13:45 Total Protein 6.2 gm/dl (6.0-8.3) 04/03/23 06:49 Albumin 3.6 gm/dl (3.4-5.0) 04/03/23 06:49 Globulin 2.6 gm/dl (2.5-4.0) 04/03/23 06:49 Albumin/Globulin Ratio 1.4 (0.9-2) 04/03/23 06:49 TSH 103.163 uIu/ml (0.300-4.500) H 04/01/23 13:45 Free T4 0.80 ng/dl (0.61-1.60) 04/01/23 13:45 Urine Color Yellow 04/01/23 16:34 Urine Appearance Cloudy (Clear) A 04/01/23 16:34 Urine pH 7.0 (4.5-7.5) 04/01/23 16:34 Ur Specific [place] 1.043 (1.000-1.030) H 04/01/23 16:34 Urine Protein Negative (Negative) 04/01/23 16:34 Urine Glucose (UA) Negative (Negative) 04/01/23 16:34 Urine Ketones 2+ (Negative) H 04/01/23 16:34 Urine Blood Negative (Negative) 04/01/23 16:34 Urine Nitrite Negative (Negative) 04/01/23 16:34 Urine Bilirubin Negative (Negative) 04/01/23 16:34 Urine Urobilinogen Negative (Negative) 04/01/23 16:34 Ur Leukocyte Esterase 1+ (Negative) H 04/01/23 16:34 Urine WBC (Auto) >30 /hpf (0-5) H 04/01/23 16:34 Urine RBC (Auto) 0-4 /hpf (0-4) 04/01/23 16:34 U Hyaline Cast (Auto) 0 /lpf (0-5) 04/01/23 16:34 U Epithel Cells (Auto) >30 /lpf (0-5) H 04/01/23 16:34 Urine Bacteria (Auto) 3+ (Negative) H 04/01/23 16:34 Urine Test Negative (Negative) 04/01/23 16:34 Adenovirus (PCR) Not Detected (NotDetected) 04/01/23 13:45 B. pertussis DNA (PCR) Not Detected (NotDetected) 04/01/23 13:45 B.parapertussis DNA PCR Not Detected (NotDetected) 04/01/23 13:45 C. pneumoniae DNA (PCR) Not Detected (NotDetected) 04/01/23 13:45 Coronavirus OC43 (PCR) Not Detected (NotDetected) 04/01/23 13:45 Coronavirus HKU1 (PCR) Not Detected (NotDetected) 04/01/23 13:45 Coronavirus 229E (PCR) Not Detected (NotDetected) 04/01/23 13:45 SARS-CoV-2 (PCR) Not Detected (NotDetected) 04/01/23 13:45 Coronavirus NL63 (PCR) Not Detected (NotDetected) 04/01/23 13:45 Human Metapneumovir PCR Not Detected (NotDetected) 04/01/23 13:45 Influenza Type A (PCR) Not Detected (NotDetected) 04/01/23 13:45 Influenza Type B (PCR) Not Detected (NotDetected) 04/01/23 13:45 M. pneumoniae (PCR) Not Detected (NotDetected) 04/01/23 13:45 Parainfluenza 1 (PCR) Not Detected (NotDetected) 04/01/23 13:45 Parainfluenza 2 (PCR) Not Detected (NotDetected) 04/01/23 13:45 Parainfluenza 3 (PCR) Not Detected (NotDetected) 04/01/23 13:45 Parainfluenza 4 (PCR) Not Detected (NotDetected) 04/01/23 13:45 RSV (PCR) Not Detected (NotDetected) 04/01/23 13:45 Entero/Rhino (PCR) Not Detected (NotDetected) 04/01/23 13:45 Impressions Abdomen/Pelvis CT 04/01/23 13:[address] WITH IV CONTRAST CT DOSE: 307.07 mGy.cm HISTORY: abdominal pain; vomiting TECHNIQUE: Multiaxial CT images of the abdomen and pelvis were performed following the use of intravenous contrast. A dose lowering technique was utilized adhering to the principles of ALARA. COMPARISON STUDY: None. FINDINGS: There is a trace left pleural effusion. There are emphysematous changes within the lung bases. Mild interstitial thickening within the right midlung zone is noted. No pneumoperitoneum. No pneumatosis. The right sacroiliac joint is fused. There are severe levoscoliosis of the visualized thoracolumbar spine with posterior spinal rods. No acute fractures identified. The spinal rods result in metallic artifact throughout the abdomen and pelvis resulting in suboptimal evaluation. Trace pericardial effusion. There are small bilateral hip effusions. Mild body wall edema. The liver, gallbladder, pancreas, spleen, left adrenal gland, and kidneys appear unremarkable. No hydronephrosis. The right adrenal gland is not well visualized. The main portal vein is patent. No retroperitoneal lymphadenopathy. Normal caliber abdominal aorta. No pelvic lymphadenopathy. There is a small amount of fluid within the deep pelvis. The bladder is distended. No bladder wall thickening. The uterus and bilateral adnexa are within normal limits. Questionable thickening of the colon is likely due to underdistention. Normal appendix. No dilated loops of bowel to suggest an obstruction. Mild diffuse mesenteric edema is noted. IMPRESSION: 1. No evidence for bowel obstruction. 2. Normal appendix. 3. Trace left pleural effusion, trace pericardial effusion, mild body wall edema, mild mesenteric edema, and a small amount of ascites. 4. Questionable thickening of the colon is likely due to underdistention. 5. Linear densities within the right midlung zone may represent chronic scarring. Mild congestive change or an interstitial pneumonitis could also have a similar appearance. 6. Emphysema. 7. Additional findings as described above. ACT 112: Negative or not required by law. Electronically signed by: Mango Cordero M.D. 04/01/2023 4:18 PM Chest X-Ray 04/01/23 15:22 XR chest 1V portable CLINICAL HISTORY: cough; congestion TECHNIQUE: Single frontal radiograph of the chest was obtained. Comparison: None available at the time of this dictation. FINDINGS: Scoliosis and posterior spinal fixation hardware is seen. The cardiomediastinal silhouette is normal. Faint opacity is in the bilateral mid lungs. Bronchial wall thickening is seen. No evidence of pleural effusion or pneumothorax. IMPRESSION: Peribronchial thickening and mild opacity in the bilateral mid lungs are seen compatible with infectious/inflammatory airways disease or viral pneumonia. ACT 112: Negative or not required by law. Electronically signed by: Vladislav Christina M.D. 04/01/2023 3:57 PM Hospital Course (1) Acute dehydration: -Acute dehydration 2/2 persistent NBNB emesis likely due to viral gastroenteritis -RVP negative on admission -Hemodynamically stable thorough admission - Appears euvolemic after repletion with IVF - Tolerating good PO intake (2) Nausea & vomiting: -Likely secondary to viral GI illness as above -Resolved prior to d/c - Script for zofran prn sent (3) Abdominal pain: -Likely secondary to viral GI illness as above -CTAP without acute findings underlying abdominal pain- nonspecific inflammatory findings such as edema and colonic distention -Pain resolved prior to d/c (4) Medullary thyroid carcinoma: -Known history of MTC with metastasis to lungs s/p thyroidectomy in 2008 and on maintenance selpercatinib since 2018 -Holding selpercatinib at present given possibility (though less likely given 5+ years of good tolerance) of her symptoms being attributed to side effect -Plan to resume on Thursday, if an issues when resuming should reach out to primary oncologist (5) Hypothyroidism: -Known history of acquired hypothyroidism s/p thyroidectomy for MTC -TSH > 100 on admission. Pt states her TSH levels have always been high and ~100+ regularly as well -Continue levothyroxine (6) Chest pain: -Chest tightness exacerbated by cough with normal EKG + negative troponin -Unlikely to represent ACS, suspect secondary to viral illness/anxiety (7) History of spinal fusion for scoliosis: -Noted, stable -Continue Lyrica Total Time Total Time Spent Total Time Spent (In Minutes): see attending attestation Discharge Plan Discharge Items Patient Disposition: Home - Self-Care Reason For Visit: NAUSEA/VOMITING Discharge Diagnosis: Viral gastroenteritis Activity: Per Instructions section Non-emergency contact: Primary Care Provider Call non-emergency contact if: you have any medication questions and your symptoms worsen Follow-up/Referrals: [place] [Primary Care Provider] - Diet: Regular Addtl Attending Provider Instructions: You were treated for a viral gastroenteritis. We treated you with fluids and anti-nauseas mediations. Be sure to continue to stay well hydrated. Wait to resume taking your selpercatinib, until Thursday. Then you can resume taking it as your normally would. If you have any issues once your resume it you should reach out to your oncologist. Pending Studies at Discharge: No Stand-Alone Forms: My [facility] Medications and DC Order Prescriptions: New ondansetron HCl 4 mg tablet 4 mg PO Q8H PRN (Reason: nausea and vomiting) 4 Days Qty: 30 0RF Continued levothyroxine 112 mcg Tablet 112 mcg PO 2XWK Rx Instructions: TAKES THURSDAY & SUNDAYS ONLY pregabalin 300 mg Capsule 600 mg PO HS Control Pill 1 tab PO DAILY Held Unknown Chemo Drug 1 tab PO BID Hold Instructions: Resume on 04/06/23. Resume on Thursday, if any issues when you restart contact your oncologist Discharge Orders: Discharge Order (Routine); Ordered 04/03/23 Ordered By: Angie Esparza Admission Data Admit Date/Time: 04/01/23 18:40 Attending Provider: Daniel Lam Admit Provider: David Lucero Primary Care Provider: [facility] Other Providers: Drake De Guzman Other Interventions: Discharge Summary Assessment (RN) Last Done: 04/03/23 16:49 Supervising Physician Co-Signing Physician Notes Attending attestation Pt seen and examined in concert with Dr. Esparza. In agreement with the documented findings as noted in the resident documentation with any exceptions or additions as noted here. Ongoing improvement in fatigue with minimal nausea and without vomiting. Tolerated full diet today without issue. On examination, S1/S2 nl RRR no MCG. CTAB. Abd NT/ND BS+ve palpable LUQ mass without imaging abnormality apparent on CT scan unchanged, non TTP Acute dehydation in the setting of intractable nausea/vomiting 2/2 viral gastroenteritis - improved s/p IV fluids and tolerating POI well. Ondansetron SL for symptom control on discharge. Metastatic medullary thyroid carcinoma - resume selpercatinib on discharge at home dose Hypothyroidism in the setting of above - TSH ongoing elevation on levothyroxine at baseline dose. Continue and encourage repeat at follow up. Else see resident documentation as noted. Total attending physician time spent with this patient's care on the day of discharge: 40 minutes. Resident Activity Tracking Resident Involvement: Resident Care Provided Care Provided: Adult [facility]
[2023-04-03] MEDS ORDERED: PATIENT'S OWN ORAL CONTRACEPTIVE PO SCH (21:00)
== END 2023-04-03 17:40 | disposition home or self-care (01) ==
LOC: 3N 12:46 → ED 12:46 → SUATTDRO 18:40 → 3N 22:35

== ENCOUNTER 2023-06-12 17:29 | Observation (INO) ==
[2023-06-12] MEDS ORDERED: SODIUM CHLORIDE 0.9% 1,000 ML IV ONE (17:56)
[2023-06-12] MEDS ORDERED: ONDANSETRON INJ 2 MG/ML 2 ML VIAL IV STA (18:07)
[2023-06-12] MEDS ORDERED: fentaNYL citrate PF 100 MCG/2 ML VIAL IV STA (18:07)
--- NOTE | 2023-06-12 18:14 | Emergency Department Note ---
Impression & Plan Chest pain, Nausea & vomiting ED Provider Note HISTORY OF PRESENT ILLNESS: Patient is a 23-year-old female presenting with nausea and vomiting, chest pain and shortness of breath. Patient states that every few months she gets episodes in which she has to come to the hospital secondary to profound nausea and persistent vomiting. Reports that she started vomiting 2 days ago has been unable to tolerate anything by mouth since. Denies any diarrhea. Denies any fevers. She reports substernal chest pain and pain in her epigastric abdominal region every time she takes a deep breath. 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 She is not on anticoagulation. Denies any history of PEs. She is on OCPs. Denies any recent sick contact exposures. She reports an abdominal surgical history of an ovarian tumor removal. Patient denies any history of drug use or marijuana use. Denies any fever ROS: as above PHYSICAL EXAM: Constitutional: Patient appears in no acute distress. HENT: Head: Normocephalic and atraumatic. Eyes: EOMI, PERRL Mouth/Throat: Mucous membranes moist. Neck: Trachea midline. Neck supple. Cardiovascular: Tachycardic with regular rhythm. No murmurs, rubs or gallops. Intact distal pulses. Pulmonary/Chest: No respiratory distress. Breath sounds clear and equal bilaterally. Tachypneic. Abdominal: Abdomen soft, no tenderness, rebound or guarding. Musculoskeletal: No edema, tenderness or deformity noted. Skin: Warm and dry. No rash, erythema, pallor or cyanosis Psychiatric: Appropriate mood and affect for situation. Neurological: Alert and keenly responsive. CN II-XII grossly intact, moving all extremities equally and fully. MDM: - Vitals signs showed tachycardia - History obtained via patient. Patient presents with nausea, vomiting, chest pain and shortness of breath. She states that every few months she gets episodes in which she has to come to the hospital secondary to profound nausea and persistent vomiting. She reports she started vomiting 2 days ago and has been unable to tolerate anything by mouth since. Denies any diarrhea or significant abdominal pain. Does locate some substernal chest pain and epigastric pain and states it hurts when she takes deep breath. Denies any PE history, but does have a remote history of DVTs after surgery. She is not on any anticoagulation. She is on OCPs. Denies any fevers - Chronic conditions affecting care: medullary thyroid cancer - Differential diagnoses include, but are not limited to: Acute coronary syndrome; pulmonary embolism; dissection; tension pneumothorax; esophageal rupture; pneumonia; viral syndrome - Order placed for continuous cardiac monitoring. At this time, monitor showed rate of 98 bpm with normal sinus rhythm, per my interpretation. - External medical records reviewed. Discharge summary dated 04/03/2023 was reviewed. Patient was admitted that time for persistent nausea and vomiting. She was admitted for viral gastroenteritis. - EKG reviewed by myself showed normal sinus rhythm. Rate 92 bpm. QTc 427. No acute ischemic changes. Significant amount of artifact obscuring baseline. - Laboratory workup interpreted by myself showed normal WBC; slight hyponatremia (Na 134); elevated anion gap (15); normal magnesium; normal glucose; normal troponin; negative dimer - CXR negative for pneumonia, per my interpretation - UA negative for infection. Noted to have ketonuria, consistent with patient's multiple episodes of vomiting - Biofire negative - Patient given 1L NS, 4 mg IV zofran and 50 mcg IV fentanyl for symptoms on arrival. On reassessment, she is still complaining of pain and nausea. Given 10 mg IV compazine, 25 mg IV benadryl and 30 mg IV toradol. - Patient still complaining of chest pain on reassessment. Given 40 mg IV solumedrol for contrast allergy and CT PE obtained. CT PE negative for pneumonia or PE. - Patient still complaining of pain on reassessment. Will admit for pain management and chest pain rule out. - Discussion was had with tire care manager about patient's case and need for observation - Hospitalist consulted for admission - [facility] and [facility] ASSESSMENT AND PLAN: Diagnosis: chest pain; nausea and vomiting; dehydration Plan: admit Past Med/Surg History Medical History (Updated 06/12/23 @ 23:08 by Claudia Moctezuma MD) Chest pain Abdominal pain Acute dehydration Nausea & vomiting Social History Smoking Status: Never smoker Second Hand Exposure: No; Do You Dip or Chew Tobacco: No; Hx Alcohol Use: No Hx Substance Use: No Preferred Language: Armenian Communication Ability: Effective Art Glass Setter Required: No Beliefs That Will Affect Care: None Current Living Situation: Other Current Living Situation Comment: dorm Feels Safe at Home: Yes Assistive Devices: None Allergies Allergies Allergy/AdvReac Type Severity Reaction Status Date / Time Iodinated Contrast Media Allergy Intermediate Hives Verified 06/12/23 19:54 latex Allergy Intermediate CATHETER--REDNESS, Verified 06/12/23 19:54 INFLAMATION Home Meds Home Medications Medication Instructions Recorded Confirmed Control Pill 1 tab PO DAILY 04/01/23 06/12/23 levothyroxine 112 mcg tablet 112 mcg PO 2XWK 04/01/23 06/12/23 pregabalin 300 mg capsule 600 mg PO HS 04/01/23 06/12/23 liothyronine 5 mcg tablet 5 mcg PO .QAM MON-Thu06/12/23 06/12/23 liothyronine 5 mcg tablet 10 mcg PO .QPM MON THRU Thu06/12/23 06/12/23 selpercatinib 80 mg capsule 160 mg PO BID 06/12/23 06/12/23 Results & Data (ED) Vital Signs Vital Signs - 24 hr 06/12/23 17:21 06/12/23 18:15 06/12/23 19:41 Temperature 37 C Temperature Source Temporal Artery Scan Pulse Rate 106 H 102 H Pulse Rate [Apical] 93 H Pulse Rhythm [Apical] Regular Pulse Strength [Apical] Normal Respiratory Rate 20 18 Respiratory Effort / Characteristics Non-Labored Spontaneous Non-Labored Spontaneous Respiratory Depth Normal Normal Respiratory Pattern Regular Regular Blood Pressure 126/90 Blood Pressure [Left Arm] 130/91 Blood Pressure Mean 102 Blood Pressure Mean [Left Arm] 104 Pulse Oximetry 100 100 Oxygen Delivery Method Room Air Room Air Sepsis Recent Fever Within 48 Hours No Sepsis New/Unexplained Change in Mental Status N/A Sepsis Action Taken by Nursing No Action Required 06/12/23 21:37 06/12/23 22:13 Temperature Temperature Source Pulse Rate 98 H Pulse Rate [Apical] 101 H Pulse Rhythm [Apical] Regular Pulse Strength [Apical] Normal Respiratory Rate 20 Respiratory Effort / Characteristics SOB on Exertion Respiratory Depth Normal Respiratory Pattern Blood Pressure Blood Pressure [Left Arm] 139/95 Blood Pressure Mean Blood Pressure Mean [Left Arm] 109 Pulse Oximetry 100 Oxygen Delivery Method Room Air Sepsis Recent Fever Within 48 Hours Sepsis New/Unexplained Change in Mental Status Sepsis Action Taken by Nursing Laboratory Data 06/12/23 18:36 06/12/23 18:36 Lab Results 06/12/23 06/12/23 06/12/23 Range/Units 18:36 22:31 Unknown WBC 6.31 (4.8-10.8) K/ul RBC 5.20 (4.20-5.40) M/uL Hgb 15.2 (12.0-16.0) g/dl Hct 44.6 (37.0-47.0) % MCV 85.8 (80.0-100.0) fL MCH 29.2 (25.0-34.0) pg MCHC 34.1 (32.0-36.0) g/dL RDW Std Deviation 39.4 (36.4-46.3) fL RDW Coeff of Brandon 12.6 (11.5-14.5) % Plt Count 316 (130-400) K/uL MPV 9.6 (9.4-12.4) fL Immature Gran % (Auto) 0.3 % Neut % (Auto) 72.7 % Lymph % (Auto) 17.9 % [place] % (Auto) 8.9 % Eos % (Auto) 0.0 % Baso % (Auto) 0.2 % Neut # (Auto) 4.59 (1.40-6.50) K/uL Lymph # (Auto) 1.13 L (1.20-3.40) K/uL [place] # (Auto) 0.56 (0.11-0.59) K/uL Eos # (Auto) 0.00 (0.00-0.50) K/uL Baso # (Auto) 0.01 (0.00-0.20) K/uL Immature Gran # (Auto) 0.02 (0.01-0.20) K/uL D-Dimer 260 (0-500) ug/L FEU Sodium 134 L (136-145) mmol/L Potassium 3.6 (3.5-5.1) mmol/L Chloride 100 (98-107) mmol/L Carbon Dioxide 19 L (21-32) mmol/L Anion Gap 15 H (3-11) BUN 4 L (6-23) mg/dl Creatinine 0.51 L (0.6-1.2) mg/dl Est Cr Clr Drug Dosing Not Reportable Est GFR ( Amer) > 150.0 ml/min Est GFR (Non-Af Amer) 136.5 ml/min BUN/Creatinine Ratio 7.8 L (10-20) Glucose 86 (70-99(Fasting)) mg/dl Calcium 10.2 (8.6-10.3) mg/dl Magnesium 2.3 (1.7-2.4) mg/dl Total Bilirubin 1.0 (0.2-1.0) mg/dl AST 14 (13-39) U/L ALT 6 L (7-52) U/L Alkaline Phosphatase 80 (34-104) U/L Troponin I High Sens < 2.3 2.3 (0-14) pg/ml Total Protein 8.1 (6.0-8.3) gm/dl Albumin 4.6 (3.4-5.0) gm/dl Globulin 3.5 (2.5-4.0) gm/dl Albumin/Globulin Ratio 1.3 (0.9-2) Urine Color Yellow Urine Appearance Clear (Clear) Urine pH 6.0 (4.5-7.5) Ur Specific [place] 1.014 (1.000-1.030) Urine Protein Negative (Negative) Urine Glucose (UA) Negative (Negative) Urine Ketones 4+ H (Negative) Urine Blood Negative (Negative) Urine Nitrite Negative (Negative) Urine Bilirubin Negative (Negative) Urine Urobilinogen Negative (Negative) Ur Leukocyte Esterase Negative (Negative) Adenovirus (PCR) Not Detected (NotDetected) B. pertussis DNA (PCR) Not Detected (NotDetected) B.parapertussis DNA PCR Not Detected (NotDetected) C. pneumoniae DNA (PCR) Not Detected (NotDetected) Coronavirus OC43 (PCR) Not Detected (NotDetected) Coronavirus HKU1 (PCR) Not Detected (NotDetected) Coronavirus 229E (PCR) Not Detected (NotDetected) SARS-CoV-2 (PCR) Not Detected (NotDetected) Coronavirus NL63 (PCR) Not Detected (NotDetected) Human Metapneumovir PCR Not Detected (NotDetected) Influenza Type A (PCR) Not Detected (NotDetected) Influenza Type B (PCR) Not Detected (NotDetected) M. pneumoniae (PCR) Not Detected (NotDetected) Parainfluenza 1 (PCR) Not Detected (NotDetected) Parainfluenza 2 (PCR) Not Detected (NotDetected) Parainfluenza 3 (PCR) Not Detected (NotDetected) Parainfluenza 4 (PCR) Not Detected (NotDetected) RSV (PCR) Not Detected (NotDetected) Entero/Rhino (PCR) Not Detected (NotDetected) Administered Medications Discontinued Medications Diphenhydramine HCl (Diphenhydramine 50 Mg/Ml Vial) 25 mg IV NOW STA Stop: 06/12/23 19:49 Last Admin: 06/12/23 20:05 Dose: 25 mg Documented By: FRED Fentanyl Citrate (Fentanyl Citrate Pf 100 Mcg/2 Ml Vial) 50 mcg IV NOW STA Stop: 06/12/23 18:08 Last Admin: 06/12/23 18:41 Dose: 50 mcg Documented By: PAPA Sodium Chloride (Nss) 1,000 mls @ 999 mls/hr IV .Q1H1M ONE Stop: 06/12/23 18:56 Last Infusion: 06/12/23 19:39 Dose: Infused Documented By: Admin: 06/12/23 18:36 Dose: 999 mls/hr Documented By: PAPA Prochlorperazine (Compazine) 2 mls @ 1 mls/min IV ONE ONE Stop: 06/12/23 19:49 Last Admin: 06/12/23 20:03 Dose: 1 mls/min Documented By: FRED Ioversol (Optiray 320 125ml) 119 ml IV ONCE ONE Stop: 06/12/23 22:03 Last Admin: 06/12/23 22:02 Dose: 119 ml Documented By: LINN Ketorolac Tromethamine (Ketorolac 30 Mg/Ml Vial) 30 mg IV NOW ONE Stop: 06/12/23 21:38 Last Admin: 06/12/23 21:45 Dose: 30 mg Documented By: LEONEL Methylprednisolone (Methylprednisolone 40 Mg/Ml Vial) 40 mg IV NOW STA Stop: 06/12/23 21:32 Last Admin: 06/12/23 21:35 Dose: 40 mg Documented By: LEONEL Ondansetron HCl (Ondansetron Inj 2 Mg/Ml 2 Ml Vial) 4 mg IV NOW STA Stop: 06/12/23 18:08 Last Admin: 06/12/23 18:37 Dose: 4 mg Documented By: PAPA Imaging Data Radiologist's Impression: Chest X-Ray 06/12/23 17:55 XR chest 1V portable CLINICAL HISTORY: Shortness of breath. COMPARISON STUDY: Chest radiograph April 01, 2023. FINDINGS: There is no pneumothorax or pleural effusion. Thoracolumbar spine scoliosis and scoliosis hardware is incidentally noted. Cardiomediastinal silhouette is stable. Interstitial thickening is unchanged. This is likely chronic. Underlying emphysema is better depicted on prior abdominal CT. There has been no change in appearance of the chest. IMPRESSION: 1. No acute cardiopulmonary findings. 2. Stable interstitial thickening with underlying emphysema, better depicted on prior abdominal CT. ACT 112: Negative or not required by law. Electronically signed by: Kwaku Deleon M.D. 06/12/2023 6:17 PM Chest CTA 06/12/23 21:29 CT ANGIOGRAM OF THE CHEST CLINICAL HISTORY: Dyspnea. Nausea and vomiting. Atypical chest pain. COMPARISON STUDY: Chest x-ray dated 06/12/2023. TECHNIQUE: Following the IV administration of 119 cc of Optiray 320, CT angiogram of the chest was performed from the upper abdomen to the thoracic inlet utilizing the pulmonary embolus protocol. Images are reviewed in the axial, sagittal, and coronal planes. 3-D MIPS images are created and assessed. The patient was premedicated for reported history of contrast allergy. IV contrast was then administered without complication. A dose lowering technique was utilized adhering to the principles of ALARA. The examination is significantly degraded by streak artifact from extensive metallic spinal hardware/spinal rods. There is also motion artifact. CT DOSE: 207.01 mGy.cm FINDINGS: Thyroid: Atrophic versus surgically absent. Thoracic aorta: The thoracic aorta is normal in caliber and demonstrates standard 3-vessel arch anatomy. No dissection is seen. Pulmonary vasculature: The pulmonary trunk is normal in caliber. There are no filling defects identified in main, lobar, or segmental pulmonary branches to suggest pulmonary embolus. Evaluation of the peripheral branches is degraded by motion artifact. Heart: The heart is normal in size and without pericardial effusion. Lungs and pleural spaces: Numerous cysts are seen throughout both lungs. There is no lobar consolidation or pleural effusion. The trachea and central airways are clear. Foci of parenchymal scarring are seen throughout both lungs. Dependent airspace opacities in the right lower lobe on image #116 could represent atelectasis versus a mild pneumonitis. Mediastinum: There is no mediastinal lymphadenopathy. Tatiana: Clear. Axillae: There is no axillary lymphadenopathy. Upper abdomen: Partially visualized upper abdominal viscera is within normal limits. Skeletal structures: The skeletal structures are osteopenic. There is moderate S-shaped thoracolumbar scoliosis with postsurgical change and spinal rods in place. The right interpedicular screw at T5 is located lateral to the pedicle. No lytic or blastic bony lesions are seen. IMPRESSION: 1. Streak and motion compromised examination. 2. There is no evidence of pulmonary embolus in the main, lobar, or segmental pulmonary arteries. 3. There is no lobar consolidation or pleural effusion. 4. Dependent airspace opacities in the right lower lobe could represent atelectasis versus a mild pneumonitis. Correlate clinically. 5. There are numerous small pulmonary cysts scattered throughout both lungs. These are nonspecific and could potentially be seen with Langerhans cell histiocytosis or lymphangioleiomyomatosis (ROUSSEAU). Consider nonemergent follow-up with pulmonology. 6. Thoracolumbar scoliosis with spinal rods in place. ACT 112: Negative or not required by law. Electronically signed by: Luis Angel Morris M.D. 06/12/2023 10:27 PM Discharge Plan Visit Data Chief Complaint: Flu Like Symptoms Stated Complaint: FLU LIKE SX, CP, COUGH ED Provider: Claudia Moctezuma Discharge Problem: Chest pain, Nausea & vomiting Forms Stand Alone Forms: My [facility] Prescriptions Prescriptions: No Action levothyroxine 112 mcg Tablet 112 mcg PO 2XWK Rx Instructions: TAKES THURSDAY & SUNDAYS ONLY pregabalin 300 mg Capsule 600 mg PO HS Control Pill 1 tab PO DAILY selpercatinib 80 mg Capsule 160 mg PO BID liothyronine 5 mcg Tablet 10 mcg PO .QPM MON THRU FRI Rx Instructions: 5 days week liothyronine 5 mcg Tablet 5 mcg PO .QAM MON-FRI Rx Instructions: 5 DAYS A WEEK Referrals Referrals: [place] [Primary Care Provider] -
--- NOTE | 2023-06-12 18:20 | XRay Report ---
XR chest 1V portable CLINICAL HISTORY: Shortness of breath. COMPARISON STUDY: Chest radiograph April 01, 2023. FINDINGS: There is no pneumothorax or pleural effusion. Thoracolumbar spine scoliosis and scoliosis h ardware is incidentally noted. Cardiomediastinal silhouette is stable. Interstitial thickening is unc hanged. This is likely chronic. Underlying emphysema is better depicted on prior abdominal CT. There has been no change in appearance of the chest. IMPRESSION: 1. No acute cardiopulmonary findings. 2. Stable interstitial thickening with underlying emphysema, better depicted on prior abdominal CT. ACT 112: Negative or not required by law. Electronically signed by: Kwaku Deleon M.D. 06/12/2023 6:17 PM
[2023-06-12 18:56] LABS: Basophils # (auto) 0.01 K/uL (0.00-0.20); Basophils % (auto) 0.2 %; Hematocrit (blood only) 44.6 % (37.0-47.0); Hemoglobin 15.2 g/dl (12.0-16.0); Immature Granulocytes # (auto) 0.02 K/uL (0.01-0.20); Immature Granulocytes % (auto) 0.3 %; Lymphocytes # (auto) 1.13 K/uL (1.20-3.40); Lymphocytes % (auto) 17.9 %; Mean Corpuscular Hemoglobin 29.2 pg (25.0-34.0); Mean Corpuscular Hgb Conc 34.1 g/dL (32.0-36.0); Mean Corpuscular Volume 85.8 fL (80.0-100.0); Mean Platelet Volume 9.6 fL (9.4-12.4); Monocytes # (auto) 0.56 K/uL (0.11-0.59); Monocytes % (auto) 8.9 %; Neutrophils # (auto) 4.59 K/uL (1.40-6.50); Neutrophils % (auto) 72.7 %; Platelet Count 316 K/uL (130-400); RDW Coefficient of Variation 12.6 % (11.5-14.5); RDW Standard Deviation 39.4 fL (36.4-46.3); White Blood Count 6.31 K/ul (4.8-10.8)
[2023-06-12 19:15] LABS: Alanine Aminotransferase 6 U/L (7-52); Albumin Globulin Ratio 1.3 (0.9-2); Albumin Level 4.6 gm/dl (3.4-5.0); Alkaline Phosphatase 80 U/L (34-104); Anion Gap 15 (3-11); Aspartate Aminotransferase 14 U/L (13-39); BUN Creatinine Ratio 7.8 (10-20); Blood Urea Nitrogen 4 mg/dl (6-23); Calcium 10.2 mg/dl (8.6-10.3); Carbon Dioxide 19 mmol/L (21-32); Chloride 100 mmol/L (98-107); Est GFR (African American) > 150.0 ml/min; Est GFR (Non-African American) 136.5 ml/min; Globulin 3.5 gm/dl (2.5-4.0); Glucose 86 mg/dl (70-99(Fasting)); Magnesium 2.3 mg/dl (1.7-2.4); Potassium 3.6 mmol/L (3.5-5.1); Sodium 134 mmol/L (136-145); Total Protein 8.1 gm/dl (6.0-8.3)
[2023-06-12 19:21] LABS: Troponin I High Sensitivity < 2.3 pg/ml (0-14)
[2023-06-12 19:22] LABS: D Dimer 260 ug/L FEU (0-500)
[2023-06-12] MEDS ORDERED: PROCHLORPERAZINE 2 ML IV ONE (19:48)
[2023-06-12] MEDS ORDERED: diphenhydrAMINE 50 MG/ML VIAL IV STA (19:48)
[2023-06-12 20:50] LABS: Adenovirus PCR Not Detected (NotDetected); Appearance Urine Clear (Clear); Bilirubin Urine Negative (Negative); Blood Urine Negative (Negative); Bordetella parapertussis PCR Not Detected (NotDetected); Bordetella pertussis PCR Not Detected (NotDetected); Chlamydia pneumoniae PCR Not Detected (NotDetected); Color Urine Yellow; Coronavirus 229E PCR Not Detected (NotDetected); Coronavirus CoV-2 (COVID19)PCR Not Detected (NotDetected); Coronavirus HKU1 PCR Not Detected (NotDetected); Coronavirus NL63 PCR Not Detected (NotDetected); Coronavirus OC43PCR Not Detected (NotDetected); Glucose Urine UA Negative (Negative); Human Metapneumovirus PCR Not Detected (NotDetected); Influenza A PCR Not Detected (NotDetected); Influenza B PCR Not Detected (NotDetected); Ketones Urine 4+ (Negative); Leukocyte Esterase Urine Negative (Negative); Mycoplasma pneumoniae PCR Not Detected (NotDetected); Nitrite Urine Negative (Negative); Parainfluenza Virus 1 PCR Not Detected (NotDetected); Parainfluenza Virus 2 PCR Not Detected (NotDetected); Parainfluenza Virus 3 PCR Not Detected (NotDetected); Parainfluenza Virus 4 PCR Not Detected (NotDetected); Protein Urine Negative (Negative); Respiratory Syncytial VirusPCR Not Detected (NotDetected); Rhinovirus/Enterovirus PCR Not Detected (NotDetected); Specific Gravity Urine 1.014 (1.000-1.030); Urobilinogen Urine Negative (Negative)
[2023-06-12] MEDS ORDERED: KETOROLAC 30 MG/ML VIAL IV ONE (21:37)
[2023-06-12] MEDS ORDERED: OPTIRAY 320 125ml IV ONE (22:02)
--- NOTE | 2023-06-12 22:29 | CT Scan Report ---
CT ANGIOGRAM OF THE CHEST CLINICAL HISTORY: Dyspnea. Nausea and vomiting. Atypical chest pain. COMPARISON STUDY: Chest x-ray dated 06/12/2023. TECHNIQUE: Following the IV administration of 119 cc of Optiray 320, CT angiogram of the chest was pe rformed from the upper abdomen to the thoracic inlet utilizing the pulmonary embolus protocol. Images are reviewed in the axial, sagittal, and coronal planes. 3-D MIPS images are created and assessed. T he patient was premedicated for reported history of contrast allergy. IV contrast was then administer ed without complication. A dose lowering technique was utilized adhering to the principles of ALARA. The examination is significantly degraded by streak artifact from extensive metallic spinal hardware /spinal rods. There is also motion artifact. CT DOSE: 207.01 mGy.cm FINDINGS: Thyroid: Atrophic versus surgically absent. Thoracic aorta: The thoracic aorta is normal in caliber and demonstrates standard 3-vessel arch anato my. No dissection is seen. Pulmonary vasculature: The pulmonary trunk is normal in caliber. There are no filling defects identif ied in main, lobar, or segmental pulmonary branches to suggest pulmonary embolus. Evaluation of the p eripheral branches is degraded by motion artifact. Heart: The heart is normal in size and without pericardial effusion. Lungs and pleural spaces: Numerous cysts are seen throughout both lungs. There is no lobar consolidat ion or pleural effusion. The trachea and central airways are clear. Foci of parenchymal scarring are seen throughout both lungs. Dependent airspace opacities in the right lower lobe on image #116 could represent atelectasis versus a mild pneumonitis. Mediastinum: There is no mediastinal lymphadenopathy. Tatiana: Clear. Axillae: There is no axillary lymphadenopathy. Upper abdomen: Partially visualized upper abdominal viscera is within normal limits. Skeletal structures: The skeletal structures are osteopenic. There is moderate S-shaped thoracolumbar scoliosis with postsurgical change and spinal rods in place. The right interpedicular screw at T5 is located lateral to the pedicle. No lytic or blastic bony lesions are seen. IMPRESSION: 1. Streak and motion compromised examination. 2. There is no evidence of pulmonary embolus in the main, lobar, or segmental pulmonary arteries. 3. There is no lobar consolidation or pleural effusion. 4. Dependent airspace opacities in the right lower lobe could represent atelectasis versus a mild pne umonitis. Correlate clinically. 5. There are numerous small pulmonary cysts scattered throughout both lungs. These are nonspecific an d could potentially be seen with Langerhans cell histiocytosis or lymphangioleiomyomatosis (ROUSSEAU). 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 6. Thoracolumbar scoliosis with spinal rods in place. ACT 112: Negative or not required by law. Electronically signed by: Luis Angel Morris M.D. 06/12/2023 10:27 PM
--- NOTE | 2023-06-12 23:54 | History & Physical Report ---
Date of Service June 12, 2023 Assessment & Plan (1) Nausea & vomiting: Plan: 23yo Female with PMH medullary thyroid cancer s/p resection now with hypothyroidism, peripheral neuropathy here for 2 days nausea vomitting chest pain. Chest Pain -with nausea and vomitting -in ED received compazine toradol fentanyl NSS benadryl -tropx2 wnl, EKG wnl WBC wnl -CTA chest: There is no evidence of pulmonary embolus in the main, lobar, or segmental pulmonary arteries. There is no lobar consolidation or pleural effusion. Dependent airspace opacities in the right lower lobe could represent atelectasis versus a mild pneumonitis. -low suspicion for cardiac disease, PE, infection at this time -possibly 2/2 viral gastritis -continue PRN compazine -trend cbc, bmp Pulmanary Cysts CTA chest: There are numerous small pulmonary cysts scattered throughout both lungs. These are nonspecific and could potentially be seen with Langerhans cell histiocytosis or lymphangioleiomyomatosis (ROUSSEAU). -Consider nonemergent follow-up with pulmonology. Hypothyroidism -continue home medications FENa: regular Code Status: Full DVT PPX: ambulatory Dispo: med/surg Essence Conroy D.O. PGY 3, FCM (2) Chest pain: (3) Hypothyroidism: History of Present Illness Chief Complaint: CP Primary Care Provider: [facility] 23[facility] Female with PMH medullary thyroid cancer s/p resection now with hypothyroidism, peripheral neuropathy here for 2 days nausea vomitting chest pain. Patient states pain was accompanied with SOB, coughing, occasional abd pain secondary to nausea/vomitting, has been getting worse since onset. States pain is across her entire chest, no worse with inspiratory/expiration/sitting/laying.She denies any sick contacts, denies any fever or urinary difficulty. At home she tried zofran and pepto-bismol without improvement. In ED she was given toradol 30mg IV, methylprednisone 40mg IV, benadryl, fentanyl, compazine, and NSS 1L. At this time nausea and pain are improved. Of note patient plans to return home for holidays tomorrow. Allergies Allergy/AdvReac Type Severity Reaction Status Date / Time Iodinated Contrast Media Allergy Intermediate Hives Verified 06/12/23 19:54 latex Allergy Intermediate CATHETER--REDNESS, Verified 06/12/23 19:54 INFLAMATION Home Medications Medication Instructions Recorded Confirmed Type Control Pill 1 tab PO DAILY 04/01/23 06/12/23 History levothyroxine 112 mcg tablet 112 mcg PO 2XWK 04/01/23 06/12/23 History pregabalin 300 mg capsule 600 mg PO HS 04/01/23 06/12/23 History liothyronine 5 mcg tablet 5 mcg PO .QAM MON-FRI 06/12/23 06/12/23 History liothyronine 5 mcg tablet 10 mcg PO .QPM MON THRU FRI 06/12/23 06/12/23 History selpercatinib 80 mg capsule 160 mg PO BID 06/12/23 06/12/23 History Past Med/Surg History Medical History (Updated 06/12/23 @ 23:08 by Claudia Moctezuma MD) Chest pain Abdominal pain Acute dehydration Nausea & vomiting Social History Smoking Status: Never smoker Second Hand Exposure: No; Do You Dip or Chew Tobacco: No; Hx Alcohol Use: No Hx Substance Use: No Preferred Language: Albanian Communication Ability: Effective Vacuum Tester Cans Required: No Beliefs That Will Affect Care: None Current Living Situation: Other Current Living Situation Comment: dorm Feels Safe at Home: Yes Assistive Devices: None Physical Exam Constitutional: well developed, well nourished, cooperative and comfortable Eyes: PERRL, conjunctivae normal, anicteric sclerae ENMT: external ear and nose normal, oropharynx normal Neck: trachea midline, no thyromegaly Respiratory: normal respiratory effort, lungs clear to auscultation Cardiovascular: Rate/Rhythm: regular rate and regular rhythm Gastrointestinal (Abdomen): Inspection/Auscultation: abdomen normal to inspection Percussion/Palpation: + abdomen tender (mild, umbilical ) Skin: no rashes, warm and dry Results & Data Results & Data Vital Signs (Past 12 Hours) Vital Signs Temp Pulse Pulse Resp BP BP Pulse Ox 06/12/23 23:00 90 19 127/92 100 06/12/23 22:13 98 H 06/12/23 21:37 101 H 20 139/95 100 06/12/23 19:41 93 H 18 130/91 100 06/12/23 18:15 102 H 06/12/23 17:21 37 C 106 H 20 126/90 100 O2 Del Method 06/12/23 23:00 Room Air 06/12/23 22:13 11/17/23 21:37 Room Air 06/12/23 19:41 Room Air 06/12/23 18:15 06/12/23 17:21 Room Air Resident Activity Tracking Resident Involvement: Resident Care Provided Care Provided: Adult Hospital Medicine
[2023-06-13] MEDS ORDERED: PREGABALIN 150 MG CAP PO SCH ×2 (00:05→21:00)
[2023-06-13] MEDS ORDERED: PROCHLORPERAZINE 5 MG in SYRINGE 4 ML IV PRN (00:05)
[2023-06-13] MEDS: IBUPROFEN 600 MG TAB PO SCH ×2 (00:36→05:20)
[2023-06-13] MEDS ORDERED: PATIENT'S OWN ORAL CONTRACEPTIVE PO SCH (01:15)
[2023-06-13] MEDS: SELPERCATINIB PO SCH ×2 (01:23→08:42)
[2023-06-13 06:14] LABS: Hematocrit (blood only) 45.3 % (37.0-47.0); Hemoglobin 15.2 g/dl (12.0-16.0); Mean Corpuscular Hemoglobin 29.7 pg (25.0-34.0); Mean Corpuscular Hgb Conc 33.6 g/dL (32.0-36.0); Mean Corpuscular Volume 88.5 fL (80.0-100.0); Mean Platelet Volume 9.8 fL (9.4-12.4); Platelet Count 299 K/uL (130-400); RDW Coefficient of Variation 12.6 % (11.5-14.5); RDW Standard Deviation 41.1 fL (36.4-46.3); Red Blood Count 5.12 M/uL (4.20-5.40)
[2023-06-13 06:30] LABS: Anion Gap 11 (3-11); Calcium 9.1 mg/dl (8.6-10.3); Carbon Dioxide 20 mmol/L (21-32); Chloride 103 mmol/L (98-107); Sodium 134 mmol/L (136-145)
[2023-06-13] MEDS ORDERED: LEVOTHYROXINE SODIUM 112 MCG TABLET PO SCH (06:30)
--- NOTE | 2023-06-13 06:34 | Hospitalist Progress Note ---
Date of Service June 13, 2023 Assessment & Plan (1) Nausea & vomiting: Plan: 23yo Female with PMH medullary thyroid cancer s/p resection now with hypothyroidism, peripheral neuropathy here for 2 days nausea vomitting chest pain. Chest Pain -with nausea and vomiting -in ED received compazine toradol fentanyl NSS benadryl -tropx2 wnl, EKG wnl WBC wnl -CTA chest: There is no evidence of pulmonary embolus in the main, lobar, or segmental pulmonary arteries. There is no lobar consolidation or pleural effusion. Dependent airspace opacities in the right lower lobe could represent atelectasis versus a mild pneumonitis. -low suspicion for cardiac disease, PE, infection at this time -possibly 2/2 viral gastritis -continue PRN compazine -trend cbc, bmp Hyponatremia: Na 134 Pulmanary Cysts CTA chest: There are numerous small pulmonary cysts scattered throughout both lungs. These are nonspecific and could potentially be seen with Langerhans cell histiocytosis or lymphangioleiomyomatosis (ROUSSEAU). -Consider nonemergent follow-up with pulmonology. Hypothyroidism -continue home medications FENa: regular Code Status: Full DVT PPX: ambulatory Dispo: med/surg Essence Conroy D.O. PGY 3, FCM (2) Chest pain: (3) Hypothyroidism: Admission and Anticipated Discharge Date Admission Date: June 12, 2023 Subjective 23 yo Female with PMH medullary thyroid cancer s/p resection now with hypothyroidism, peripheral neuropathy here for 2 days nausea vomiting chest pain. Patient states pain was accompanied with SOB, coughing, occasional abd pain secondary to nausea/vomiting, has been getting worse since onset. States pain is across her entire chest, no worse with inspiratory/expiratio n/sitting/laying.She denies any sick contacts, denies any fever or urinary difficulty. At home she tried zofran and pepto-bismol without improvement. Of note patient plans to return home for holidays tomorrow. Review of Systems Review of Systems: as per HPI Physical Exam Constitutional: WD/WN, vitals as above Results & Data Results & Data Vital Signs (Past 12 Hours) Vital Signs Temp Pulse Pulse Pulse Resp BP Pulse Ox 06/13/23 02:00 36.9 C 89 16 117/80 100 06/13/23 01:00 96 H 18 133/95 100 06/12/23 23:00 90 19 127/92 100 06/12/23 22:13 98 H 06/12/23 21:37 101 H 20 139/95 100 06/12/23 19:41 93 H 18 130/91 100 O2 Del Method 06/13/23 02:00 Room Air 06/13/23 01:00 Room Air 06/12/23 23:00 Room Air 06/12/23 22:13 06/12/23 21:37 Room Air 06/12/23 19:41 Room Air Resident Activity Tracking Resident Involvement: Resident Care Provided Care Provided: Adult Hospital Medicine
[2023-06-13 06:36] LABS: BUN Creatinine Ratio 10.4 (10-20); Blood Urea Nitrogen 5 mg/dl (6-23); Creatinine Clr Calc Pharmacy 114.7 ml/min; Est GFR (African American) > 150.0 ml/min; Est GFR (Non-African American) 139.2 ml/min; Glucose 109 mg/dl (70-99(Fasting))
--- NOTE | 2023-06-13 12:03 | Discharge Summary ---
Date of Service June 13, 2023 Admission HPI Per Admitting Provider 23yo Female with PMH medullary thyroid cancer s/p resection now with hypothyroidism, peripheral neuropathy here for 2 days nausea vomitting chest pain. Patient states pain was accompanied with SOB, coughing, occasional abd pain secondary to nausea/vomitting, has been getting worse since onset. States pain is across her entire chest, no worse with inspiratory/expiration/sitting/laying.She denies any sick contacts, denies any fever or urinary difficulty. At home she tried zofran and pepto-bismol without improvement. In ED she was given toradol 30mg IV, methylprednisone 40mg IV, benadryl, fentanyl, compazine, and NSS 1L. At this time nausea and pain are improved. Of note patient plans to return home for holidays tomorrow. Admission Exam Per Admitting Provider constitutional: well developed, well nourished, cooperative and comfortable Eyes: PERRL, conjunctivae normal, anicteric sclerae ENMT: external ear and nose normal, oropharynx normal Neck: trachea midline, no thyromegaly Respiratory: normal respiratory effort, lungs clear to auscultation Cardiovascular: Rate/Rhythm: regular rate and regular rhythm Gastrointestinal (Abdomen): Inspection/Auscultation: abdomen normal to inspection Percussion/Palpation: + abdomen tender (mild, umbilical ) Skin: no rashes, warm and dry Principal Diagnosis Gastritis Nausea/vomits Discharge Exam Constitutional WD/WN, vitals as above Respiratory normal respiratory effort, lungs clear to auscultation Cardiovascular RRR, no murmur, no edema Gastrointestinal (Abdomen) normal bowel sounds, soft, nontender, no hepatosplenomegaly Musculoskeletal no cyanosis or clubbing, extremities motor strength 5/5 Skin no rashes, warm and dry Discharge Data Allergies Allergy/AdvReac Type Severity Reaction Status Date / Time Iodinated Contrast Media Allergy Intermediate Hives Verified 06/12/23 19:54 latex Allergy Intermediate CATHETER--REDNESS, Verified 06/12/23 19:54 INFLAMATION Consultations 06/12/23 23:18 ED Decision to Admit Stat Ordered Studies Labs 06/12/23 06/12/23 06/12/23 18:36 22:31 Unknown WBC 6.31 RBC 5.20 Hgb 15.2 Hct 44.6 MCV 85.8 MCH 29.2 MCHC 34.1 RDW Std Deviation 39.4 RDW Coeff of [place] 12.6 Plt Count 316 MPV 9.6 Immature Gran % (Auto) 0.3 Neut % (Auto) 72.7 Lymph % (Auto) 17.9 [place] % (Auto) 8.9 Eos % (Auto) 0.0 Baso % (Auto) 0.2 Neut # (Auto) 4.59 Lymph # (Auto) 1.13 L [place] # (Auto) 0.56 Eos # (Auto) 0.00 Baso # (Auto) 0.01 Immature Gran # (Auto) 0.02 D-Dimer 260 Sodium 134 L Potassium 3.6 Chloride 100 Carbon Dioxide 19 L Anion Gap 15 H BUN 4 L Creatinine 0.51 L Est Cr Clr Drug Dosing Not Reportable Est GFR ( Amer) > 150.0 Est GFR (Non-Af Amer) 136.5 BUN/Creatinine Ratio 7.8 L Glucose 86 Calcium 10.2 Magnesium 2.3 Total Bilirubin 1.0 AST 14 ALT 6 L Alkaline Phosphatase 80 Troponin I High Sens < 2.3 2.3 Total Protein 8.1 Albumin 4.6 Globulin 3.5 Albumin/Globulin Ratio 1.3 Urine Color Yellow Urine Appearance Clear Urine pH 6.0 Ur Specific [place] 1.014 Urine Protein Negative Urine Glucose (UA) Negative Urine Ketones 4+ H Urine Blood Negative Urine Nitrite Negative Urine Bilirubin Negative Urine Urobilinogen Negative Ur Leukocyte Esterase Negative Adenovirus (PCR) Not Detected B. pertussis DNA (PCR) Not Detected B.parapertussis DNA PCR Not Detected C. pneumoniae DNA (PCR) Not Detected Coronavirus OC43 (PCR) Not Detected Coronavirus HKU1 (PCR) Not Detected Coronavirus 229E (PCR) Not Detected SARS-CoV-2 (PCR) Not Detected Coronavirus NL63 (PCR) Not Detected Human Metapneumovir PCR Not Detected Influenza Type A (PCR) Not Detected Influenza Type B (PCR) Not Detected M. pneumoniae (PCR) Not Detected Parainfluenza 1 (PCR) Not Detected Parainfluenza 2 (PCR) Not Detected Parainfluenza 3 (PCR) Not Detected Parainfluenza 4 (PCR) Not Detected RSV (PCR) Not Detected Entero/Rhino (PCR) Not Detected 06/13/23 05:25 WBC 6.00 RBC 5.12 Hgb 15.2 Hct 45.3 MCV 88.5 MCH 29.7 MCHC 33.6 RDW Std Deviation 41.1 RDW Coeff of [place] 12.6 Plt Count 299 MPV 9.8 Immature Gran % (Auto) Neut % (Auto) Lymph % (Auto) [place] % (Auto) Eos % (Auto) Baso % (Auto) Neut # (Auto) Lymph # (Auto) [place] # (Auto) Eos # (Auto) Baso # (Auto) Immature Gran # (Auto) D-Dimer Sodium 134 L Potassium 4.0 Chloride 103 Carbon Dioxide 20 L Anion Gap 11 BUN 5 L Creatinine 0.48 L Est Cr Clr Drug Dosing 114.7 Est GFR ( Amer) > 150.0 Est GFR (Non-Af Amer) 139.2 BUN/Creatinine Ratio 10.4 Glucose 109 H Calcium 9.1 Magnesium Total Bilirubin AST ALT Alkaline Phosphatase Troponin I High Sens Total Protein Albumin Globulin Albumin/Globulin Ratio Urine Color Urine Appearance Urine pH Ur Specific [place] Urine Protein Urine Glucose (UA) Urine Ketones Urine Blood Urine Nitrite Urine Bilirubin Urine Urobilinogen Ur Leukocyte Esterase Adenovirus (PCR) B. pertussis DNA (PCR) B.parapertussis DNA PCR C. pneumoniae DNA (PCR) Coronavirus OC43 (PCR) Coronavirus HKU1 (PCR) Coronavirus 229E (PCR) SARS-CoV-2 (PCR) Coronavirus NL63 (PCR) Human Metapneumovir PCR Influenza Type A (PCR) Influenza Type B (PCR) M. pneumoniae (PCR) Parainfluenza 1 (PCR) Parainfluenza 2 (PCR) Parainfluenza 3 (PCR) Parainfluenza 4 (PCR) RSV (PCR) Entero/Rhino (PCR) Chest X-Ray 06/12/23 17:55 XR chest 1V portable CLINICAL HISTORY: Shortness of breath. COMPARISON STUDY: Chest radiograph April 01, 2023. FINDINGS: There is no pneumothorax or pleural effusion. Thoracolumbar spine scoliosis and scoliosis hardware is incidentally noted. Cardiomediastinal silhouette is stable. Interstitial thickening is unchanged. This is likely chronic. Underlying emphysema is better depicted on prior abdominal CT. There has been no change in appearance of the chest. IMPRESSION: 1. No acute cardiopulmonary findings. 2. Stable interstitial thickening with underlying emphysema, better depicted on prior abdominal CT. ACT 112: Negative or not required by law. Electronically signed by: Kwaku Deleon M.D. 06/12/2023 6:17 PM Chest CTA 06/12/23 21:29 CT ANGIOGRAM OF THE CHEST CLINICAL HISTORY: Dyspnea. Nausea and vomiting. Atypical chest pain. COMPARISON STUDY: Chest x-ray dated 06/12/2023. TECHNIQUE: Following the IV administration of 119 cc of Optiray 320, CT angiogram of the chest was performed from the upper abdomen to the thoracic inlet utilizing the pulmonary embolus protocol. Images are reviewed in the axial, sagittal, and coronal planes. 3-D MIPS images are created and assessed. The patient was premedicated for reported history of contrast allergy. IV contrast was then administered without complication. A dose lowering technique was utilized adhering to the principles of ALARA. The examination is significantly degraded by streak artifact from extensive metallic spinal hardware/spinal rods. There is also motion artifact. CT DOSE: 207.01 mGy.cm FINDINGS: Thyroid: Atrophic versus surgically absent. Thoracic aorta: The thoracic aorta is normal in caliber and demonstrates standard 3-vessel arch anatomy. No dissection is seen. Pulmonary vasculature: The pulmonary trunk is normal in caliber. There are no filling defects identified in main, lobar, or segmental pulmonary branches to suggest pulmonary embolus. Evaluation of the peripheral branches is degraded by motion artifact. Heart: The heart is normal in size and without pericardial effusion. Lungs and pleural spaces: Numerous cysts are seen throughout both lungs. There is no lobar consolidation or pleural effusion. The trachea and central airways are clear. Foci of parenchymal scarring are seen throughout both lungs. Dependent airspace opacities in the right lower lobe on image #116 could represent atelectasis versus a mild pneumonitis. Mediastinum: There is no mediastinal lymphadenopathy. [place]: Clear. Axillae: There is no axillary lymphadenopathy. Upper abdomen: Partially visualized upper abdominal viscera is within normal limits. Skeletal structures: The skeletal structures are osteopenic. There is moderate S-shaped thoracolumbar scoliosis with postsurgical change and spinal rods in pl debi. The right interpedicular screw at T5 is located lateral to the pedicle. No lytic or blastic bony lesions are seen. IMPRESSION: 1. Streak and motion compromised examination. 2. There is no evidence of pulmonary embolus in the main, lobar, or segmental pulmonary arteries. 3. There is no lobar consolidation or pleural effusion. 4. Dependent airspace opacities in the right lower lobe could represent atelectasis versus a mild pneumonitis. Correlate clinically. 5. There are numerous small pulmonary cysts scattered throughout both lungs. These are nonspecific and could potentially be seen with Langerhans cell histiocytosis or lymphangioleiomyomatosis (ROUSSEAU). Consider nonemergent follow-up with pulmonology. 6. Thoracolumbar scoliosis with spinal rods in place. ACT 112: Negative or not required by law. Electronically signed by: Luis Angel Morris M.D. 06/12/2023 10:27 PM 06/12/23 21:29 CT for pulmonary embolism PE [CT angio chest PE protocol] Stat Hospital Course (1) Nausea & vomiting: (2) Chest pain: (3) Hypothyroidism: (4) Gastritis: Plan 23 yo Female with PMH medullary thyroid cancer s/p resection now with hypothyroidism, peripheral neuropathy here for 2 days nausea, vomiting and chest pain. Chest Pain - Nausea and vomiting also reported -Low likelihood of ischemic episode, negative work up - CTA: Negative for pulmonary embolus -Possibly occasioned by gastritis - Patient discharge with Famotidine (Pepcid) Hyponatremia: Na 134, likely due to episode of vomiting. Consider repeat BMP as outpatient Pulmonary Cysts Findings of CTA chest: There are numerous small pulmonary cysts scattered throughout both lungs. These are nonspecific and could potentially be seen with Langerhans cell histiocytosis or lymphangioleiomyomatosis (ROUSSEAU). -Consider nonemergent follow-up with pulmonology. Hypothyroidism -continue home medications Total Time Total Time Spent Total Time Spent (In Minutes): see attending attestation Discharge Plan Discharge Items Patient Disposition: Home - Self-Care Reason For Visit: CP Discharge Diagnosis: Chest pain Vomiting/ diarrhea Activity: Per Instructions section Non-emergency contact: Primary Care Provider Call non-emergency contact if: you have any medication questions, your symptoms worsen, your pain is unusual for you and your temperature is above 101 Follow-up/Referrals: [facility] [Primary Care Provider] - Diet: Regular Addtl Attending Provider Instructions: You were admitted to the hospital due to chest pain , nausea and vomiting. You were treated with IV fluids and medications for the nausea We rule out any cardiology or pulmonary etiology for your pain chest. We recommend Pepcid daily A discharge summary will be sent to your primary care physician to ensure continuity of care. Please bring this discharge summary with you to your next office appointment so that your provider can review it at that time. Follow-up appointments: Make a follow-up appointment with your PCP within the next week. It is very important that you follow up with them shortly after discharge from the hospital. Medications: Your medication list has been reviewed and reconciled upon discharge to ensure accuracy and continuity of care. An updated list of all your medications is included with your hospital discharge paperwork. Please review this list closely, and make note of any changes. Take your medications as instructed; do not skip a dose of your medicines. Make sure all of your doctors know every medicine you are taking (including [id number] medicines, vitamins, and supplements). Call your primary care provider before taking any new medicines (including over- the- counter medicines, vitamins, and supplements), because some of these may interact with your current medications, or may make your symptoms worse. Tell your primary care provider if you cannot afford your medications. CALL 911 OR GO TO THE EMERGENCY DEPARTMENT if you experience any of the following: Sudden, severe abdominal pain or nausea/vomiting Severe chest pain, or chest pain that radiates (moves) to your jaw or arm Sudden, severe shortness of breath or difficulty breathing Thank you for allowing us to participate in your care. Pending Studies at Discharge: No Stand-Alone Forms: My [facility] Immunetrics, Smoking Cessation Medications and DC Order Prescriptions: New famotidine [Pepcid] 20 mg tablet 20 mg PO DAILY Qty: 30 0RF Continued levothyroxine 112 mcg Tablet 112 mcg PO 2XWK Rx Instructions: TAKES THURSDAY & SUNDAYS ONLY pregabalin 300 mg Capsule 600 mg PO HS Control Pill 1 tab PO DAILY selpercatinib 80 mg Capsule 160 mg PO BID liothyronine 5 mcg Tablet 10 mcg PO .QPM MON THRU FRI Rx Instructions: 5 days week liothyronine 5 mcg Tablet 5 mcg PO .QAM MON-FRI Rx Instructions: 5 DAYS A WEEK Discharge Orders: Discharge Order (Routine); Ordered 06/13/23 Ordered By: Patrizia Leach Admission Data Admit Date/Time: 06/12/23 23:50 Attending Provider: Marga Albarran Admit Provider: Essence Conroy Primary Care Provider: H[facility] Other Providers: Judy Brown [place]. Other Interventions: Discharge Summary Assessment (RN) Last Done: 06/13/23 12:14 Supervising Physician Co-Signing Physician Notes Resident Physician Supervision Note: I independently interviewed and examined the patient and verified the koo history and physical, reviewed labs and image studies and agree with resident findings and care plan. Admitted for observation due to chest pain which started after having vomiting. No concern of cardiac or pulmonary pathology. Pain likely due to vomiting - due to gastroenteritis. Resolved. Able to tolerated regular meal. Resident Activity Tracking Resident Involvement: Resident Care Provided Care Provided: Adult Hospital Medicine
--- NOTE | 2023-06-15 18:55 | Electrocardiogram Report ---
Test Reason : Blood Pressure : / mmHG Vent. Rate : 092 BPM Atrial Rate : 092 BPM P-R Int : 128 ms QRS Dur : 066 ms QT Int : 346 ms P-R-T Axes : 052 107 033 degrees QTc Int : 427 ms Poor data quality, interpretation may be adversely affected Normal sinus rhythm Rightward axis T wave abnormality, consider anterior ischemia Abnormal ECG When compared with ECG of 01-APR-2023 16:29, Nonspecific T wave abnormality no longer evident in Lateral leads Confirmed by Pancho Matute ([id number]) on 06/15/2023 6:55:16 PM Referred By: NO PCP Confirmed By:Pancho Matute
== END 2023-06-13 13:03 | disposition home or self-care (01) ==
LOC: 3N 17:29 → ED 17:29 → SUATTDRO 23:50 → 3N 06-13 02:13

== ENCOUNTER 2024-05-05 14:44 | Inpatient (IN) ==
--- NOTE | 2024-05-05 15:08 | Emergency Department Note ---
Impression & Plan Pneumonia involving right lung, Medullary thyroid carcinoma, Hypothyroidism, Mycoplasma pneumonia ED Provider Note CHIEF COMPLAINT: SOB, dehydration HISTORY OF PRESENTING ILLNESS: This 23 year old female presents to the ER with a friend for evaluation of SOB, runny nose, nasal congestion, and wheezing for the past week. She has a sharp pain in her chest that is worse with taking a deep breath. She had a fever 101 F max for the first 2 days, but no fevers since that time. Has some discomfort in the muscles of her abdomen from coughing, but no internal abdominal pain. Denies any nausea or vomiting. Denies any urinary symptoms. Denies constipation or diarrhea. She has been taking Mucinex for her symptoms. She is currently on oral chemo. No known ill contacts. Childhood immunizations are up to date. The patient was seen at [facility] earlier today and sent to the ER due to her wheezing and symptoms. REVIEW OF SYSTEMS: See HPI for pertinent positives and pertinent negatives. ALLERGIES: IV contrast (hives - able to be pretreated), latex MEDICATIONS: Pregabalin, Synthroid, OCPs, Cytomel, Loxo - per patient PAST MEDICAL HISTORY: History of Medullary Thyroid Cancer s/p surgical resection and oral chemo. She was diagnosed at 9 y/o and continues with oral chemo treatment. PHYSICAL EXAM: Vital Signs: Vitals are noted on the nurse's note and reviewed by myself. GENERAL: Non toxic in appearance and in no acute distress. SKIN: Capillary reflex less than 2 seconds. HEAD: Normocephalic, atraumatic. EARS: Bilateral external auditory canals clear without tragus tenderness. Bilateral tympanic membranes pearly licona without erythema or effusion. No mastoid tenderness bilaterally. EYES: Pupils equal round and reactive to light and accommodation. Conjunctivae without injection, sclerae without icterus. Extraocular movements intact. NOSE: Patent, turbinates inflamed with no discharge. No sinus tenderness. MOUTH: Mucous membranes moist. Airway patent, uvula midline. Pharynx is erythematous and edematous without exudate. Pharynx without postnasal drip. No evidence for peritonsillar abscess. NECK: Supple without nuchal rigidity. No meningeal signs. Mild bilateral anterior cervical lymphadenopathy. HEART: Tachycardic without murmurs gallops or rubs. LUNGS: Clear to auscultation bilaterally with a few scattered wheezes without rales or rhonchi. No accessory muscle use or retractions. ABDOMEN: Positive bowel sounds x 4. Normal tympanic percussion. Soft, nontender, without masses or organomegaly. NEURO: Patient was alert and oriented. DIFFERENTIAL DIAGNOSIS: Differential diagnosis includes viral syndrome, RSV, Influenza, COVID, strep throat, pharyngitis/tonsillitis, mononucleosis, retropharyngeal abscess, peritonsillar abscess, otitis media, otitis externa, sinusitis, bronchitis, pneumonia, as well as other pathologies. ED COURSE AND MEDICAL DECISION MAKING: MEDICATIONS GIVEN: Tylenol 1000 mg p.o. DuoNeb treatment. 500 mL normal saline solution bolus. Rocephin 2 g IV. Zithromax 500 mg IV. MONITOR: Continuous rn cardiac cath: Order was placed for continuous rn cardiac cath. Patient was placed on the rn cardiac cath and continuous pulse ox. Patient was noted to be in sinus tachycardia at an initial rate of 120 bpm per my interpretation. EKG: EKG was interpreted by myself as []. INTERPRETATION OF LABS: I interpreted the labs with full lab results as below in the lab section of this note. Pertinent lab results discussed in the MDM section below. INTERPRETATION OF IMAGING: Imaging studies were interpreted by myself and read by radiology as per the imaging section of this note. Chest x-ray showed airspace consolidation in the right mid to lower lung which is typical for pneumonia. CHRONIC MEDICAL/SOCIAL CONDITIONS AFFECTING CARE: History of medullary thyroid cancer on oral chemo CONSULTATIONS: On-call hospitalist MDM SUMMARY: The patient was seen during a time of extreme volume and extreme acuity. Nursing triage protocols were initiated with IV lock, labs, and/or imaging studies conducted by protocol in the triage area. The patient was initially evaluated in a sub-waiting room and then re-evaluated once they were taken back to an exam room. The patient has had a runny nose, nasal congestion, cough, and intermittent wheezing for the past week. She had a fever of 101 F maximum for the first 2 days, but no fevers since that time. The patient now has increasing pain in her chest that is worse with taking a deep breath. She is concerned about pneumonia. The patient has a history of medullary thyroid cancer status post surgical resection and oral chemotherapy. She continues on oral chemotherapy and states that she tends to get very sick with her illnesses. The patient had wheezing on exam and was given a DuoNeb treatment with improvement of the wheezing, but she still felt like she was having trouble breathing. Pulse ox without evidence of hypoxia. The patient was initially tachycardic, but this improved after IV fluids. Due to a severe shortage of IV fluids, the patient was only given 500 mL liter normal saline solution bolus. White blood cell count normal at 7.21. Hemoglobin normal at 12.2. Platelet count elevated at 405. No evidence for neutropenia. Anion gap elevated at 12, but CMP otherwise without significant abnormalities. TSH elevated at 370.763. Free T4 less than 0.25. Serum hCG negative. Respiratory BioFire positive for Mycoplasma pneumoniae and rhinovirus/enterovirus. Group A strep PCR was negative. Monoscreen negative. Blood culture is pending. Chest x-ray showed airspace consolidation in the right mid to lower lung which is typical for pneumonia. Blood culture was drawn. The patient was given Rocephin 2 g IV and Zithromax 500 mg IV. I spoke with the patient's mother via phone at the patient's request. The patient and her mother are concerned about her pneumonia since she tends to get very sick with illnesses due to the oral chemo. I discussed admission versus outpatient treatment with the patient and the patient and her mother would feel more comfortable with admission due to her symptoms and history. I spoke with the on-call hospitalist who agreed to admit the patient for further evaluation and treatment. Please refer to their dictation for further details. The patient's care was transferred in stable condition. DIAGNOSIS: Right-sided pneumonia Mycoplasma pneumonia History of medullary thyroid carcinoma on oral chemotherapy Hypothyroidism Past Med/Surg History Problem List (Updated 05/05/24 @ 20:27 by Jeanette Saunders PA-C) Mycoplasma pneumonia (Acute) Pneumonia involving right lung (Acute) Gastritis Hypothyroidism (Acute) History of spinal fusion for scoliosis Medullary thyroid carcinoma (Acute) Medical History (Updated 05/05/24 @ 20:27 by Jeanette Saunders PA-C) Nausea & vomiting Chest pain Chest pain Abdominal pain Acute dehydration Nausea & vomiting Social History Smoking Status: Never smoker Second Hand Exposure: No; Do You Dip or Chew Tobacco: No; Hx Alcohol Use: No Hx Substance Use: No Preferred Language: Chinese Communication Ability: Effective Grill Attendant Required: No Beliefs That Will Affect Care: None Current Living Situation: Other Current Living Situation Comment: Dorm at [facility] Feels Safe at Home: Yes Assistive Devices: None Allergies Allergies Allergy/AdvReac Type Severity Reaction Status Date / Time Iodinated Contrast Media Allergy Intermediate Hives Verified 05/05/24 18:38 latex Allergy Intermediate CATHETER--REDNESS, Verified 05/05/24 18:38 INFLAMATION Home Meds Home Medications Medication Instructions Recorded Confirmed levothyroxine 112 mcg tablet 112 mcg PO 2XWK 04/01/23 05/05/24 pregabalin 300 mg capsule 600 mg PO HS 04/01/23 05/05/24 liothyronine 5 mcg tablet 5 mcg PO .QAM MON-Thu06/12/23 05/05/24 liothyronine 5 mcg tablet 10 mcg PO .QPM MON THRU Thu06/12/23 05/05/24 selpercatinib 80 mg capsule 160 mg PO BID 06/12/23 05/05/24 norgestimate 0.25 mg-ethinyl 1 tab PO DAILY 05/05/24 05/05/24 estradiol 35 mcg tablet (Aislinn) Results & Data (ED) Vital Signs Vital Signs - 24 hr 05/05/24 14:47 05/05/24 15:39 05/05/24 15:39 Temperature 36.2 C L Temperature Source Temporal Artery Scan Pulse Rate 129 H Pulse Rate [Apical] Respiratory Rate 20 Respiratory Effort / Characteristics Non-Labored Spontaneous Respiratory Depth Normal Blood Pressure 103/77 Blood Pressure [Right Arm] Blood Pressure Mean 85 Blood Pressure Mean [Right Arm] Pulse Oximetry 97 99 Oxygen Delivery Method Room Air Room Air Room Air Oxygen Flow Rate 0 Sepsis Recent Fever Within 48 Hours No Sepsis New/Unexplained Change in Mental Status No Sepsis Action Taken by Nursing No Action Required 05/05/24 15:39 05/05/24 17:00 05/05/24 19:00 Temperature Temperature Source Pulse Rate Pulse Rate [Apical] 100 H 96 H 96 H Respiratory Rate 20 25 H 19 Respiratory Effort / Characteristics Respiratory Depth Blood Pressure Blood Pressure [Right Arm] 114/91 114/83 122/97 Blood Pressure Mean Blood Pressure Mean [Right Arm] 98 93 105 Pulse Oximetry 98 98 100 Oxygen Delivery Method Room Air Room Air Room Air Oxygen Flow Rate Sepsis Recent Fever Within 48 Hours Sepsis New/Unexplained Change in Mental Status Sepsis Action Taken by Nursing 05/05/24 19:28 Temperature Temperature Source Pulse Rate Pulse Rate [Apical] 103 H Respiratory Rate 27 H Respiratory Effort / Characteristics Respiratory Depth Blood Pressure Blood Pressure [Right Arm] 119/72 Blood Pressure Mean Blood Pressure Mean [Right Arm] 87 Pulse Oximetry 100 Oxygen Delivery Method Room Air Oxygen Flow Rate Sepsis Recent Fever Within 48 Hours Sepsis New/Unexplained Change in Mental Status Sepsis Action Taken by Nursing Laboratory Data 05/05/24 17:28 05/05/24 17:28 Lab Results 05/05/24 05/05/24 05/05/24 Range/Units 14:49 15:52 17:28 WBC 7.21 (4.8-10.8) K/ul RBC 4.07 L (4.20-5.40) M/uL Hgb 12.2 (12.0-16.0) g/dl Hct 37.1 (37.0-47.0) % MCV 91.2 (80.0-100.0) fL MCH 30.0 (25.0-34.0) pg MCHC 32.9 (32.0-36.0) g/dL RDW Std Deviation 45.3 (36.4-46.3) fL RDW Coeff of Brandon 13.5 (11.5-14.5) % Plt Count 405 H (130-400) K/uL MPV 8.8 L (9.4-12.4) fL Immature Gran % (Auto) 0.3 % Neut % (Auto) 80.1 % Lymph % (Auto) 12.6 % [place] % (Auto) 6.9 % Eos % (Auto) 0.0 % Baso % (Auto) 0.1 % Neut # (Auto) 5.77 (1.40-6.50) K/uL Lymph # (Auto) 0.91 L (1.20-3.40) K/uL [place] # (Auto) 0.50 (0.11-0.59) K/uL Eos # (Auto) 0.00 (0.00-0.50) K/uL Baso # (Auto) 0.01 (0.00-0.20) K/uL Immature Gran # (Auto) 0.02 (0.01-0.20) K/uL Sodium 139 (136-145) mmol/L Potassium 3.5 (3.5-5.1) mmol/L Chloride 103 (98-107) mmol/L Carbon Dioxide 24 (21-32) mmol/L Anion Gap 12 H (3-11) BUN 6 (6-23) mg/dl Creatinine 0.62 (0.6-1.2) mg/dl Est Cr Clr Drug Dosing 81.8 ml/min eGFR 129.05 BUN/Creatinine Ratio 9.7 L (10-20) Glucose 78 (70-99(Fasting)) mg/dl Calcium 9.2 (8.6-10.3) mg/dl Total Bilirubin 0.4 (0.2-1.0) mg/dl AST 30 (13-39) U/L ALT 34 (7-52) U/L Alkaline Phosphatase 91 (34-104) U/L Total Protein 7.6 (6.0-8.3) gm/dl Albumin 4.2 (3.4-5.0) gm/dl Globulin 3.4 (2.5-4.0) gm/dl Albumin/Globulin Ratio 1.2 (0.9-2) TSH 370.763 H (0.300-4.500) uIu/ml Free T4 < 0.25 L (0.61-1.60) ng/dl HCG, Qual Negative (Negative) Adenovirus (PCR) Not Detected (NotDetected) B. pertussis DNA (PCR) Not Detected (NotDetected) B.parapertussis DNA PCR Not Detected (NotDetected) C. pneumoniae DNA (PCR) Not Detected (NotDetected) Coronavirus OC43 (PCR) Not Detected (NotDetected) Coronavirus HKU1 (PCR) Not Detected (NotDetected) Coronavirus 229E (PCR) Not Detected (NotDetected) SARS-CoV-2 (PCR) Not Detected (NotDetected) Coronavirus NL63 (PCR) Not Detected (NotDetected) Monoscreen Negative (Negative) Human Metapneumovir PCR Not Detected (NotDetected) Influenza Type A (PCR) Not Detected (NotDetected) Influenza Type B (PCR) Not Detected (NotDetected) M. pneumoniae (PCR) DETECTED A (NotDetected) Parainfluenza 1 (PCR) Not Detected (NotDetected) Parainfluenza 2 (PCR) Not Detected (NotDetected) Parainfluenza 3 (PCR) Not Detected (NotDetected) Parainfluenza 4 (PCR) Not Detected (NotDetected) RSV (PCR) Not Detected (NotDetected) Entero/Rhino (PCR) DETECTED A (NotDetected) Group A Strep (PCR) NOT DETECTED (NotDetected) Administered Medications Azithromycin 500 mg/ Dextrose 255 mls @ 125 mls/hr IV NOW ONE Stop: 05/05/24 20:22 Last Admin: 05/05/24 19:05 Dose: 125 mls/hr Documented By: PHILLY Discontinued Medications Acetaminophen (Acetaminophen 500 Mg Tab) 1,000 mg PO NOW STA Stop: 05/05/24 15:22 Last Admin: 05/05/24 15:50 Dose: 1,000 mg Documented By: PHILLY Albuterol (Albut/Ipratrop 3mg/0.5mg Neb 3 Ml Vial) 3 ml NEB NOW STA; Protocol Stop: 05/05/24 15:22 Last Admin: 05/05/24 15:50 Dose: 3 ml Documented By: PHILLY Sodium Chloride (Nss) 500 mls @ 999 mls/hr IV .Q31M ONE Stop: 05/05/24 17:33 Last Infusion: 05/05/24 18:30 Dose: Infused Documented By: Admin: 05/05/24 17:31 Dose: 999 mls/hr Documented By: PHILLY Ceftriaxone Sodium (Rocephin) 2,000 mg in 50 mls @ 100 mls/hr IV NOW STA Stop: 05/05/24 18:49 Last Infusion: 05/05/24 19:05 Dose: Infused Documented By: Admin: 05/05/24 18:31 Dose: 100 mls/hr Documented By: PHILLY Ondansetron HCl (Ondansetron Inj 2 Mg/Ml 2 Ml Vial) 4 mg IV ONCE ONE Stop: 05/05/24 19:24 Last Admin: 05/05/24 19:30 Dose: 4 mg Documented By: PHILLY Ondansetron HCl (Ondansetron Inj 2 Mg/Ml 2 Ml Vial) Confirm Administered Dose 4 mg .ROUTE .STK-MED ONE Stop: 05/05/24 19:26 Last Admin: 05/05/24 19:30 Dose: Not Given Documented By: PHILLY Imaging Data Radiologist's Impression: Chest X-Ray 05/05/24 14:50 SINGLE VIEW CHEST CLINICAL HISTORY: Cough. FINDINGS: A PA chest radiograph is compared to study dated 06/25/2023 and correlated with chest CT dated 06/12/2023. The cardiomediastinal silhouette is unremarkable. Chronic interstitial thickening with evidence of cystic lung disease is similar to previous. This was better characterized on the prior chest CT. There is airspace consolidation in the right lower lung. No large pleural effusion or pneumothorax is identified. The bony thorax is grossly intact. There is S-shaped thoracolumbar scoliosis with extensive postsurgical change and spinal rods in place. Surgical clips project over the left supraclavicular region. IMPRESSION: Airspace consolidation in the right mid to lower lung is typical for pneumonia. Clinical correlation will be required and radiographic follow-up to resolution is recommended ACT 112: Negative or not required by law. Electronically signed by: Luis Angel Morris M.D. 05/05/2024 3:44 PM Discharge Plan Visit Data Chief Complaint: Shortness of Breath/Dyspnea Stated Complaint: SOB, DEHYDRATION ED Provider: Ean Curry ED Midlevel Provider: Jeanette Saunders Discharge Problem: Pneumonia involving right lung, Medullary thyroid carcinoma, Hypothyroidism, Mycoplasma pneumonia Patient Disposition: Admitted As Inpatient Condition: Good Forms Stand Alone Forms: My [facility] [employer] Prescriptions Prescriptions: No Action levothyroxine 112 mcg Tablet 112 mcg PO 2XWK Rx Instructions: TAKES THURSDAY & SUNDAYS ONLY pregabalin 300 mg Capsule 600 mg PO HS selpercatinib 80 mg Capsule 160 mg PO BID liothyronine 5 mcg Tablet 10 mcg PO .QPM MON THRU FRI Rx Instructions: 5 days week liothyronine 5 mcg Tablet 5 mcg PO .QAM MON-FRI Rx Instructions: 5 DAYS A WEEK norgestimate-ethinyl estradiol [Aislinn] 0.25-35 mg-mcg Tablet 1 tab PO DAILY Referrals Referrals: [place],[facility] [Primary Care Provider] - Discharge Problem: Pneumonia involving right lung Qualifiers: Pneumonia type: due to Mycoplasma pneumoniae Lung location: unspecified part of lung Qualified Code(s): J15.7 - Pneumonia due to Mycoplasma pneumoniae Hypothyroidism Qualifiers: Hypothyroidism type: unspecified Qualified Code(s): E03.9 - Hypothyroidism, unspecified Mycoplasma pneumonia Qualifiers: Laterality: right Lung location: unspecified part of lung Qualified Code(s): J 15.7 - Pneumonia due to Mycoplasma pneumoniae
--- NOTE | 2024-05-05 15:46 | XRay Report ---
SINGLE VIEW CHEST CLINICAL HISTORY: Cough. FINDINGS: A PA chest radiograph is compared to study dated 06/25/2023 and correlated with chest CT da margaret 06/12/2023. The cardiomediastinal silhouette is unremarkable. Chronic interstitial thickening wit h evidence of cystic lung disease is similar to previous. This was better characterized on the prior chest CT. There is airspace consolidation in the right lower lung. No large pleural effusion or pneum othorax is identified. The bony thorax is grossly intact. There is S-shaped thoracolumbar scoliosis w ith extensive postsurgical change and spinal rods in place. Surgical clips project over the left supr aclavicular region. IMPRESSION: Airspace consolidation in the right mid to lower lung is typical for pneumonia. Clinical correlation will be required and radiographic follow-up to resolution is recommended ACT 112: Negative or not required by law. Electronically signed by: Luis Angel Morris M.D. 05/05/2024 3:44 PM
[2024-05-05] MEDS: ALBUT/IPRATROP 3MG/0.5MG NEB 3 ML VIAL NEB STA (15:50)
[2024-05-05] MEDS: ACETAMINOPHEN 500 MG TAB PO STA (15:50)
[2024-05-05 15:57] LABS: Adenovirus PCR Not Detected (NotDetected); Bordetella parapertussis PCR Not Detected (NotDetected); Bordetella pertussis PCR Not Detected (NotDetected); Chlamydia pneumoniae PCR Not Detected (NotDetected); Coronavirus 229E PCR Not Detected (NotDetected); Coronavirus CoV-2 (COVID19)PCR Not Detected (NotDetected); Coronavirus HKU1 PCR Not Detected (NotDetected); Coronavirus NL63 PCR Not Detected (NotDetected); Coronavirus OC43PCR Not Detected (NotDetected); Human Metapneumovirus PCR Not Detected (NotDetected); Influenza A PCR Not Detected (NotDetected); Influenza B PCR Not Detected (NotDetected); Mycoplasma pneumoniae PCR DETECTED (NotDetected); Parainfluenza Virus 1 PCR Not Detected (NotDetected); Parainfluenza Virus 2 PCR Not Detected (NotDetected); Parainfluenza Virus 3 PCR Not Detected (NotDetected); Parainfluenza Virus 4 PCR Not Detected (NotDetected); Respiratory Syncytial VirusPCR Not Detected (NotDetected); Rhinovirus/Enterovirus PCR DETECTED (NotDetected)
[2024-05-05] MEDS: SODIUM CHLORIDE 0.9% 500 ML IV ONE (17:31)
[2024-05-05 17:46] LABS: Basophils # (auto) 0.01 K/uL (0.00-0.20); Basophils % (auto) 0.1 %; Hematocrit (blood only) 37.1 % (37.0-47.0); Hemoglobin 12.2 g/dl (12.0-16.0); Immature Granulocytes # (auto) 0.02 K/uL (0.01-0.20); Immature Granulocytes % (auto) 0.3 %; Lymphocytes # (auto) 0.91 K/uL (1.20-3.40); Lymphocytes % (auto) 12.6 %; Mean Corpuscular Hgb Conc 32.9 g/dL (32.0-36.0); Mean Corpuscular Volume 91.2 fL (80.0-100.0); Mean Platelet Volume 8.8 fL (9.4-12.4); Monocytes % (auto) 6.9 %; Neutrophils # (auto) 5.77 K/uL (1.40-6.50); Neutrophils % (auto) 80.1 %; Platelet Count 405 K/uL (130-400); RDW Coefficient of Variation 13.5 % (11.5-14.5); RDW Standard Deviation 45.3 fL (36.4-46.3); Red Blood Count 4.07 M/uL (4.20-5.40); White Blood Count 7.21 K/ul (4.8-10.8)
[2024-05-05 18:01] LABS: Albumin Level 4.2 gm/dl (3.4-5.0); Anion Gap 12 (3-11); Bilirubin,Total 0.4 mg/dl (0.2-1.0); Calcium 9.2 mg/dl (8.6-10.3); Carbon Dioxide 24 mmol/L (21-32); Chloride 103 mmol/L (98-107); Potassium 3.5 mmol/L (3.5-5.1); Sodium 139 mmol/L (136-145)
[2024-05-05 18:02] LABS: Monotest Negative (Negative); Pregnancy Test, Serum Negative (Negative)
[2024-05-05 18:07] LABS: Alanine Aminotransferase 34 U/L (7-52); Albumin Globulin Ratio 1.2 (0.9-2); Alkaline Phosphatase 91 U/L (34-104); Aspartate Aminotransferase 30 U/L (13-39); BUN Creatinine Ratio 9.7 (10-20); Blood Urea Nitrogen 6 mg/dl (6-23); Creatinine Clr Calc Pharmacy 81.8 ml/min; Globulin 3.4 gm/dl (2.5-4.0); Glucose 78 mg/dl (70-99(Fasting)); Total Protein 7.6 gm/dl (6.0-8.3)
[2024-05-05] MEDS: cefTRIAXone SODIUM 2,000 MG/50 ML BAG IV STA (18:31)
[2024-05-05 18:50] LABS: Thyroid Stimulating Hormone 370.763 uIu/ml (0.300-4.500)
[2024-05-05] MEDS: AZITHROMYCIN 500 MG in DEXTROSE 5% 250 ML IV ONE (19:05)
[2024-05-05 19:25] LABS: T4 Free Thyroxine < 0.25 ng/dl (0.61-1.60)
[2024-05-05] MEDS ORDERED: ACETAMINOPHEN 325 MG TAB PO PRN (19:28)
[2024-05-05] MEDS: ONDANSETRON INJ 2 MG/ML 2 ML VIAL IV ONE (19:30)
[2024-05-05] MEDS: ONDANSETRON INJ 2 MG/ML 2 ML VIAL ONE (19:30)
--- NOTE | 2024-05-05 19:38 | History & Physical Report ---
Date of Service May 05, 2024 Assessment & Plan (1) Pneumonia involving right lung: Plan: Assessment: 1. Right middle and lower lobe pneumonia. Community-acquired. BioFire positive for mycoplasma pneumonia as well as rhinovirus. Sputum cultures. IV Rocephin. IV azithromycin. 2. History of medullary thyroid carcinoma since the age of 9 on chronic oral therapy. 3. Nausea and vomiting x 1 at the bedside dose of Zofran's been given. 4. Hypothyroidism. This hypothyroidism is not adequately controlled as evidenced by TSH this evening at 370.76 Free with a free T4 that essentially undetectable. We have discussed with the patient she has not been taking her Synthroid/thyroid replacement therapy due to insurance reasons however she just got her prescription filled and started a day or 2 ago. Will continue the dose as ordered and she will need outpatient follow-up thyroid function studies in the next 3 to 6 weeks. 5. Anxiety. She states he gets very nervous in the hospital. We have ordered 1 dose of IV Ativan x 1 0.5 mg. 6. Severe scoliosis status post very significant spine surgery with rods from basically stem to bailey. 7. Oral contraceptives. Patient been counseled to use alternative means due to the antibiotic therapy over the next month. It is noted that her beta hCG test is negative here today. Plan: As discussed above. Please refer to orders for further planning. 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 Over the last several days she has had increasing cough and shortness of breath and she does have a history of pneumonia. She came to the ER for further evaluation and treatment. In the ER she was have found to have a right middle lobe and lower lobe pneumonia. She was given IV Rocephin and IV azithromycin. Her bio fire 19 was negative for coronavirus positive for mycoplasma pneumonia as well as rhinovirus. The patient was tachycardic on admission in the 129. She also received a liter of saline. Patient chronically immunocompromised with a history of medullary thyroid carcinoma. Therefore admitting the patient with community-acquired pneumonia with mycoplasma and will continue IV Rocephin and IV azithromycin we have ordered sputum cultures. Allergies Allergy/AdvReac Type Severity Reaction Status Date / Time Iodinated Contrast Media Allergy Intermediate Hives Verified 05/05/24 18:38 latex Allergy Intermediate CATHETER--REDNESS, Verified 05/05/24 18:38 INFLAMATION Home Medications Medication Instructions Recorded Confirmed Type levothyroxine 112 mcg tablet 112 mcg PO 2XWK 04/01/23 05/05/24 History pregabalin 300 mg capsule 600 mg PO HS 04/01/23 05/05/24 History liothyronine 5 mcg tablet 5 mcg PO .QAM MON-Thu06/12/23 05/05/24 History liothyronine 5 mcg tablet 10 mcg PO .QPM MON THRU FRI 06/12/23 05/05/24 History selpercatinib 80 mg capsule 160 mg PO BID 06/12/23 05/05/24 History norgestimate 0.25 mg-ethinyl 1 tab PO DAILY 05/05/24 05/05/24 History estradiol 35 mcg tablet (Aislinn) Past Med/Surg History Problem List (Updated 05/05/24 @ 19:35 by Todd Newberry, PhD, DO) Pneumonia involving right lung Gastritis Hypothyroidism History of spinal fusion for scoliosis Medullary thyroid carcinoma Medical History (Updated 05/05/24 @ 19:35 by Todd Newberry, PhD, DO) Nausea & vomiting Chest pain Chest pain Abdominal pain Acute dehydration Nausea & vomiting Social History Smoking Status: Never smoker Second Hand Exposure: No; Do You Dip or Chew Tobacco: No; Hx Alcohol Use: No Hx Substance Use: No Preferred Language: Mongolian Communication Ability: Effective Sales Estimator Required: No Beliefs That Will Affect Care: None Current Living Situation: Other Current Living Situation Comment: Dorm at [facility] Feels Safe at Home: Yes Assistive Devices: None Review of Systems Review of Systems: A 10 point review of system was obtained and unless otherwise stated here or in history of present illness are negative and noncontributory to chief complaint. Physical Exam Physical Exam: In General: In general pleasant 23-year-old female is alert noted x 3 at time my examination she interacts appropriately her only complaint at this time besides her shortness of breath and cough is nausea. HEENT: Normocephalic atraumatic pupils are equal round and reactive to light bilaterally. No scleral icterus no conjunctival injection external auditory canals are patent septum is in the midline nose is without discharge oral mucosa is pink and moist without lesion. NECK: Supple no rigidity no lymphadenopathy no thyromegaly no carotid bruits no JVD no masses. HEART: Regular rate and rhythm I do not appreciate any ectopy or rub. No murmur. LUNGS: Coarse bilaterally but especially in the right lower lung field with rhonchi. She has severe scoliosis noted on exam. ABDOMEN: Soft nontender, no rebound, no peritoneal signs, positive bowel sounds, no appreciable organomegaly. EXTREMITIES: Intact, no peripheral cyanosis, clubbing or edema. Strength is 5 out of 5 x 4 extremities. NEUROLOGICAL: Cranial nerves II through XII are grossly intact with no focal deficit elicited upon examination. No tremor. Results & Data Results & Data Vital Signs (Past 12 Hours) Vital Signs Temp Pulse Pulse Resp BP BP Pulse Ox 05/05/24 19:00 96 H 19 122/97 100 05/05/24 17:00 96 H 25 H 114/83 98 05/05/24 15:39 100 H 20 114/91 98 05/05/24 15:39 99 05/05/24 15:39 05/05/24 14:47 36.2 C L 129 H 20 103/77 97 O2 Del Method O2 Flow Rate 05/05/24 19:00 Room Air 05/05/24 17:00 Room Air 05/05/24 15:39 Room Air 05/05/24 15:39 Room Air 0 05/05/24 15:39 Room Air 05/05/24 14:47 Room Air Code Status & VTE Plan Code Status Full code. VTE Prophylaxis Plan VTE Prophylaxis will be ordered: Yes PG Care Time/CCT Total # of Minutes Spent Total Time Spent with Patient: Total time spent is greater than 50% in coordination of care (as documented) at patient's floor/unit and/or counseling patient: Coding Level of Care Code 63658 INT INP/OBS CARE 3/75MIN Diagnoses Pneumonia involving right lung J18.9
[2024-05-05] MEDS: LORazepam 2 MG/1 ML VIAL IV ONE (20:28)
[2024-05-05] MEDS: LIOTHYRONINE SODIUM 5 MCG TAB PO SCH (22:44)
[2024-05-05] MEDS: PROCHLORPERAZINE 10 MG in SYRINGE 8 ML IV ONE (22:44)
[2024-05-05] MEDS: PREGABALIN 150 MG CAP PO SCH (22:44)
[2024-05-06] MEDS ORDERED: Nursing to Pharmacy Communication SCH (00:30)
[2024-05-06] MEDS: SELPERCATINIB PO SCH (01:32)
[2024-05-06] MEDS: LIOTHYRONINE SODIUM 5 MCG TAB PO SCH (05:43)
[2024-05-06] MEDS: COUGH DROP (SUGAR FREE) LOZ 24 LOZ/1 BOX BUCCAL ONE (05:47)
[2024-05-06] MEDS ORDERED: LIOTHYRONINE SODIUM 5 MCG TAB PO SCH (06:30)
[2024-05-06 06:44] LABS: Appearance Urine Slightly Cloudy (Clear); Bilirubin Urine Negative (Negative); Blood Urine Negative (Negative); Color Urine Yellow; Glucose Urine UA Negative (Negative); Ketones Urine 1+ (Negative); Leukocyte Esterase Urine Negative (Negative); Nitrite Urine Negative (Negative); Protein Urine Trace (Negative); Specific Gravity Urine 1.025 (1.000-1.030); Urobilinogen Urine Negative (Negative)
[2024-05-06 07:10] LABS: Mucus Urine Present (None Prsent)
[2024-05-06 07:11] LABS: Bacteria Urine 2+ (None Seen); RBC Urine 0-2 /hpf (0-2); WBC Urine 21-50 /hpf (0-5)
[2024-05-06 07:56] LABS: Basophils # (auto) 0.01 K/uL (0.00-0.20); Basophils % (auto) 0.2 %; Eosinophils # (auto) 0.02 K/uL (0.00-0.50); Eosinophils % (auto) 0.4 %; Hematocrit (blood only) 32.4 % (37.0-47.0); Hemoglobin 10.9 g/dl (12.0-16.0); Immature Granulocytes # (auto) 0.02 K/uL (0.01-0.20); Immature Granulocytes % (auto) 0.4 %; Lymphocytes # (auto) 1.22 K/uL (1.20-3.40); Lymphocytes % (auto) 22.8 %; Mean Corpuscular Hemoglobin 30.3 pg (25.0-34.0); Mean Corpuscular Hgb Conc 33.6 g/dL (32.0-36.0); Mean Platelet Volume 8.9 fL (9.4-12.4); Monocytes # (auto) 0.53 K/uL (0.11-0.59); Monocytes % (auto) 9.9 %; Neutrophils # (auto) 3.55 K/uL (1.40-6.50); Neutrophils % (auto) 66.3 %; Platelet Count 391 K/uL (130-400); RDW Coefficient of Variation 13.5 % (11.5-14.5); RDW Standard Deviation 44.6 fL (36.4-46.3); White Blood Count 5.35 K/ul (4.8-10.8)
[2024-05-06 08:12] LABS: Albumin Globulin Ratio 1.2 (0.9-2); Albumin Level 3.7 gm/dl (3.4-5.0); BUN Creatinine Ratio 7.1 (10-20); Bilirubin,Total 0.4 mg/dl (0.2-1.0); Calcium 8.5 mg/dl (8.6-10.3); Creatinine Clr Calc Pharmacy 74.8 ml/min; Magnesium 2.1 mg/dl (1.7-2.4); Potassium 3.5 mmol/L (3.5-5.1); Total Protein 6.7 gm/dl (6.0-8.3)
[2024-05-06] MEDS ORDERED: PATIENT'S OWN ORAL CONTRACEPTIVE PO SCH (09:00)
--- NOTE | 2024-05-06 12:00 | Hospitalist Progress Note ---
Date of Service May 06, 2024 Assessment & Plan (1) Pneumonia involving right lung: Plan: BioFire resp panel +mycoplasma and rhinovirus. Discussed both pathogens with patient. Rhinovirus - droplet precautions, supportive care. Mycoplasma - currently on rocephin/zithromax. Can change to doxycycline PO and finish her course with such. Patient quite stable, O2 sats high 90s in RA, etc. (2) Mycoplasma pneumonia: Plan: as seen on BioFire as above in #1 (3) Rhinovirus infection: Plan: as above (4) Hypothyroidism: Plan: SEVERELY decompensated with TSH >350 and FT4 undetectable patient has not been on her synthoid, etc - just recently resumed them cont levothyroixine 112mcg per home dosing (twice a week on Sat/Sun) cont liothyronine - 15mcg - M-F needs TSH repeated in 4 weeks as outpatient (5) Medullary thyroid carcinoma: Plan: dx age 9 with mets to lungs (by report) follows with [facility] in [facility] sees them [id number] she was able to bring up a CT chest report from 02/2024 done in [place] - the CT findings are somewhat similar to her 05/2023 CT scan chest done here continue Selpercatinib BID (6) History of spinal fusion for scoliosis: (7) Abnormal chest xray: Plan: patient with cystic lesions on chest x-ray which are chronic CTA chest 05/2023 with numerous b/l lung cysts radiology in 05/2023 mentioned the cysts could be due to pulmonary histiocytotis or ROUSSEAU 02/2024 CT chest in [facility] also references these cysts I had an informal discussion with on-call pulmonology today regarding her imaging will check alpha-1 antitrypsin mutation will check BRIDGER-12 antibody panel will check VEGF level (vascular endothelial growth factor) pt's mother informed about the numerous cysts on imaging pt & her mother mention they have been told these findings are due to prior thyroid cancer lung mets, but that would lead to scarring or nodules rather than cysts will need close f/u with local pulmonary or pulmonary in [facility] (8) Severely underweight adult: Plan: recommend MVI, Boost/Ensure, etc. Plan pt's mother updated by phone anticipate d/c home tomorrow Admission and Anticipated Discharge Date Admission Date: May 05, 2024 Subjective patient reports she had had some dyspnea prior to admission but this is improved some cough but nothing severe poor appetite pre-admission but improved today no diarrhea no abd pain or nausea no chest pain or pleuritic pain we had lengthy discussion about her CTA chest findings (done 05/2023) and chest x-rays showing chronic cysts and other changes her mother called into the room and her mother was on speaker phone both report that her imaging is reflective of scarring from prior thyroid cancer mets to the lungs? she is followed by [facility] in [facility] for her h/o medullary thyroid ca mother confirms that Carol has had PFTs in the past no h/o bronchoscopy she sees [facility] every 3 months or so has regular imaging Carol confirms she hadn't been taking her thyroid replacement due to insurance issues but recently resumed all of her meds Review of Systems Review of Systems: gen - no recent weight changes cv - no cp pulm - no dyspnea GI - no pain Physical Exam Physical Exam: gen - thin, cachectic, NAD, pleasant mouth - MMM neck - no JVD heart - RRR, s1 s2, no murmur lungs - focal rales R base, decreased BS both bases; no wheeze; no increased work of breathing spine - scoliosis; large vertical scars over her back abd - soft NT ND BS+ ext - no edema, pulses 2+ b/l musculo - arms/legs are very thin, muscle wasting Results & Data Results & Data Vital Signs (Past 12 Hours) Vital Signs Temp Pulse Resp BP Pulse Ox O2 Del Method 05/06/24 07:05 36.7 C 85 18 100/66 95 Room Air Laboratory Results Laboratory Results - last 24 hr 05/05/24 05/05/24 05/05/24 14:49 15:52 17:28 WBC 7.21 RBC 4.07 L Hgb 12.2 Hct 37.1 MCV 91.2 MCH 30.0 MCHC 32.9 RDW Std Deviation 45.3 RDW Coeff of Brandon 13.5 Plt Count 405 H MPV 8.8 L Immature Gran % (Auto) 0.3 Neut % (Auto) 80.1 Lymph % (Auto) 12.6 [place] % (Auto) 6.9 Eos % (Auto) 0.0 Baso % (Auto) 0.1 Neut # (Auto) 5.77 Lymph # (Auto) 0.91 L [place] # (Auto) 0.50 Eos # (Auto) 0.00 Baso # (Auto) 0.01 Immature Gran # (Auto) 0.02 Sodium 139 Potassium 3.5 Chloride 103 Carbon Dioxide 24 Anion Gap 12 H BUN 6 Creatinine 0.62 Est Cr Clr Drug Dosing 81.8 eGFR 129.05 BUN/Creatinine Ratio 9.7 L Glucose 78 Calcium 9.2 Magnesium Total Bilirubin 0.4 AST 30 ALT 34 Alkaline Phosphatase 91 Total Protein 7.6 Albumin 4.2 Globulin 3.4 Albumin/Globulin Ratio 1.2 TSH 370.763 H Free T4 < 0.25 L HCG, Qual Negative Urine Color Urine Appearance Urine pH Ur Specific [place] Urine Protein Urine Glucose (UA) Urine Ketones Urine Blood Urine Nitrite Urine Bilirubin Urine Urobilinogen Ur Leukocyte Esterase Urine RBC Urine WBC Ur Epithelial Cells Urine Bacteria Urine Mucus Adenovirus (PCR) Not Detected B. pertussis DNA (PCR) Not Detected B.parapertussis DNA PCR Not Detected C. pneumoniae DNA (PCR) Not Detected Coronavirus OC43 (PCR) Not Detected Coronavirus HKU1 (PCR) Not Detected Coronavirus 229E (PCR) Not Detected SARS-CoV-2 (PCR) Not Detected Coronavirus NL63 (PCR) Not Detected Monoscreen Negative Human Metapneumovir PCR Not Detected Influenza Type A (PCR) Not Detected Influenza Type B (PCR) Not Detected M. pneumoniae (PCR) DETECTED A Parainfluenza 1 (PCR) Not Detected Parainfluenza 2 (PCR) Not Detected Parainfluenza 3 (PCR) Not Detected Parainfluenza 4 (PCR) Not Detected RSV (PCR) Not Detected Entero/Rhino (PCR) DETECTED A Group A Strep (PCR) NOT DETECTED 05/06/24 05/06/24 05:50 07:20 WBC 5.35 RBC 3.60 L Hgb 10.9 L Hct 32.4 L MCV 90.0 MCH 30.3 MCHC 33.6 RDW Std Deviation 44.6 RDW Coeff of [place] 13.5 Plt Count 391 MPV 8.9 L Immature Gran % (Auto) 0.4 Neut % (Auto) 66.3 Lymph % (Auto) 22.8 [place] % (Auto) 9.9 Eos % (Auto) 0.4 Baso % (Auto) 0.2 Neut # (Auto) 3.55 Lymph # (Auto) 1.22 [place] # (Auto) 0.53 Eos # (Auto) 0.02 Baso # (Auto) 0.01 Immature Gran # (Auto) 0.02 Sodium 137 Potassium 3.5 Chloride 105 Carbon Dioxide 25 Anion Gap 7 BUN 5 L Creatinine 0.70 Est Cr Clr Drug Dosing 74.8 eGFR 125.33 BUN/Creatinine Ratio 7.1 L Glucose 78 Calcium 8.5 L Magnesium 2.1 Total Bilirubin 0.4 AST 27 ALT 28 Alkaline Phosphatase 75 Total Protein 6.7 Albumin 3.7 Globulin 3.0 Albumin/Globulin Ratio 1.2 TSH Free T4 HCG, Qual Urine Color Yellow Urine Appearance Slightly Cloudy Urine pH 7.0 Ur Specific [place] 1.025 Urine Protein Trace H Urine Glucose (UA) Negative Urine Ketones 1+ H Urine Blood Negative Urine Nitrite Negative Urine Bilirubin Negative Urine Urobilinogen Negative Ur Leukocyte Esterase Negative Urine RBC 0-2 Urine WBC 21-50 H Ur Epithelial Cells 11-20 H Urine Bacteria 2+ H Urine Mucus Present A Adenovirus (PCR) B. pertussis DNA (PCR) B.parapertussis DNA PCR C. pneumoniae DNA (PCR) Coronavirus OC43 (PCR) Coronavirus HKU1 (PCR) Coronavirus 229E (PCR) SARS-CoV-2 (PCR) Coronavirus NL63 (PCR) Monoscreen Human Metapneumovir PCR Influenza Type A (PCR) Influenza Type B (PCR) M. pneumoniae (PCR) Parainfluenza 1 (PCR) Parainfluenza 2 (PCR) Parainfluenza 3 (PCR) Parainfluenza 4 (PCR) RSV (PCR) Entero/Rhino (PCR) Group A Strep (PCR) Diagnostic Findings Chest X-Ray 05/05/24 14:50 SINGLE VIEW CHEST CLINICAL HISTORY: Cough. FINDINGS: A PA chest radiograph is compared to study dated 06/25/2023 and correlated with chest CT dated 06/12/2023. The cardiomediastinal silhouette is unremarkable. Chronic interstitial thickening with evidence of cystic lung disease is similar to previous. This was better characterized on the prior chest CT. There is airspace consolidation in the right lower lung. No large pleural effusion or pneumothorax is identified. The bony thorax is grossly intact. There is S-shaped thoracolumbar scoliosis with extensive postsurgical change and spinal rods in place. Surgical clips project over the left supraclavicular region. IMPRESSION: Airspace consolidation in the right mid to lower lung is typical for pneumonia. Clinical correlation will be required and radiographic follow-up to resolution is recommended ACT 112: Negative or not required by law. Electronically signed by: Luis Angel Morris M.D. 05/05/2024 3:44 PM PG Care Time/CCT Total # of Minutes Spent Total Time Spent with Patient: Total time spent is greater than 50% in coordination of care (as documented) at patient's floor/unit and/or counseling patient: Coding Level of Care Code 00876 SUB INP/OBS CARE 3/50MIN Diagnoses Pneumonia involving right lung J15.7 Lung location: unspecified part of lung Pneumonia type: due to Mycoplasma pneumoniae Mycoplasma pneumonia J15.7 Laterality: right Lung location: unspecified part of lung Rhinovirus infection B34.8 Hypothyroidism E03.9 Hypothyroidism type: unspecified Medullary thyroid carcinoma C73 History of spinal fusion for scoliosis Z98.1; Z87.39 Abnormal chest xray R93.89 Severely underweight adult R63.6 (1) Pneumonia involving right lung Lung location: unspecified part of lung Pneumonia type: due to Mycoplasma pneumoniae Qualified Code(s): J15.7 - Pneumonia due to Mycoplasma pneumoniae (2) Mycoplasma pneumonia Laterality: right Lung location: unspecified part of lung Qualified Code(s): J15.7 - Pneumonia due to Mycoplasma pneumoniae (4) Hypothyroidism Hypothyroidism type: unspecified Qualified Code(s): E03.9 - Hypothyroidism, unspecified
[2024-05-06] MEDS ORDERED: cefTRIAXone SODIUM 1,000 MG/50 ML BAG IV SCH (18:30)
[2024-05-06] MEDS ORDERED: AZITHROMYCIN 500 MG in DEXTROSE 5% 250 ML IV SCH (19:00)
[2024-05-06] MEDS: PATIENT'S OWN ORAL CONTRACEPTIVE PO SCH (20:18)
[2024-05-06] MEDS: DOXYCYCLINE HYCLATE 100 MG CAP PO SCH (20:19)
[2024-05-06] MEDS: INFLUENZA VACC TS2024-25(6m+)/PF (IIV3) 0.5mL Syr IM ONE (20:22)
[2024-05-06] MEDS ORDERED: AZITHROMYCIN 250 MG TAB PO SCH (21:00)
[2024-05-06 22:10] VITALS: O2SAT 99
[2024-05-07] MEDS: LEVOTHYROXINE SODIUM 112 MCG TABLET PO SCH (06:18)
[2024-05-07 07:59] VITALS: BP 110/68; RESP 18; TEMP 98.4
--- NOTE | 2024-05-07 11:18 | Discharge Summary ---
Discharge Summary Date of Service May 07, 2024 Principal Dx & Hospital Course #1 = Principal Diagnosis (1) Pneumonia involving right lung: BioFire resp panel +mycoplasma and rhinovirus. Discussed both pathogens with patient. Rhinovirus - droplet precautions, supportive care. Mycoplasma - currently on rocephin/zithromax. Can change to doxycycline PO and finish her course with such. Patient quite stable, O2 sats high 90s in RA, etc. (2) Mycoplasma pneumonia: as seen on BioFire as above in #1 (3) Rhinovirus infection: as above (4) Hypothyroidism: SEVERELY decompensated with TSH >350 and FT4 undetectable patient has not been on her synthoid, etc - just recently resumed them cont levothyroixine 112mcg per home dosing (twice a week on Sat/Sun) cont liothyronine - 15mcg - M-F needs TSH repeated in 4 weeks as outpatient (5) Medullary thyroid carcinoma: dx age 9 with mets to lungs (by report) follows with [facility] in [facility] sees them [id number] she was able to bring up a CT chest report from 02/2024 done in [place] - the CT findings are somewhat similar to her 05/2023 CT scan chest done here continue Selpercatinib BID (6) History of spinal fusion for scoliosis: (7) Abnormal chest xray: patient with cystic lesions on chest x-ray which are chronic CTA chest 05/2023 with numerous b/l lung cysts radiology in 05/2023 mentioned the cysts could be due to pulmonary histiocytotis or ROUSSEAU 02/2024 CT chest in [facility] also references these cysts I had an informal discussion with on-call pulmonology today regarding her imaging will check alpha-1 antitrypsin mutation will check BRIDGER-12 antibody panel will check VEGF level (vascular endothelial growth factor) pt's mother informed about the numerous cysts on imaging pt & her mother mention they have been told these findings are due to prior thyroid cancer lung mets, but that would lead to scarring or nodules rather than cysts will need close f/u with local pulmonary or pulmonary in [facility] (8) Severely underweight adult: recommend MVI, Boost/Ensure, etc. 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 Over the last several days she has had increasing cough and shortness of breath and she does have a history of pneumonia. She came to the ER for further evaluation and treatment. In the ER she was have found to have a right middle lobe and lower lobe pneumonia. She was given IV Rocephin and IV azithromycin. Her bio fire 19 was negative for coronavirus positive for mycoplasma pneumonia as well as rhinovirus. The patient was tachycardic on admission in the 129. She also received a liter of saline. Patient chronically immunocompromised with a history of medullary thyroid carcinoma. Therefore admitting the patient with community-acquired pneumonia with mycoplasma and will continue IV Rocephin and IV azithromycin we have ordered sputum cultures. Discharge Exam gen - thin, cachectic, NAD, pleasant mouth - MMM neck - no JVD heart - RRR, s1 s2, no murmur lungs - focal rales R base, decreased BS both bases; no wheeze; no increased work of breathing spine - scoliosis; large vertical scars over her back abd - soft NT ND BS+ ext - no edema, pulses 2+ b/l musculo - arms/legs are very thin, muscle wasting Discharge Plan Discharge Items Patient Disposition: Home - Self-Care Reason For Visit: Pneumonia Discharge Diagnosis: 1. right-sided pneumonia due to mycoplasma bacteria 2. rhinovirus infection 3. hypothyroidism - TSH level very high (370) 4. abnormal chest x-rays & CT chest - numerous cysts throughout both lungs - additional work-up needed 5. medullary thyroid cancer Condition on Discharge: Good Activity: As commented below Activity Comment: gradually increase your activities over the next 5-7 days Non-emergency contact: Primary Care Provider Call non-emergency contact if: you have any medication questions, your symptoms worsen and you have a fever Follow-up/Referrals: [place] [Primary Care Provider] - (3-4 days for recheck ) Diet: Regular Addtl Attending Provider Instructions: Ms Kessler, You were hospitalized due to right-sided pneumonia. Your respiratory panel showed rhinovirus (a common cold virus) as well as mycoplasma bacteria (see handout). You improved nicely with IV/oral antibiotics. Your oxygen levels were normal throughout your stay. Blood cultures remained negative (no bacteria found in the blood stream). Your chest x-ray as well as previous CT scans of your lungs have showed numerous cysts throughout both lungs. Our stock chaser suggested we check you for various conditions that can cause the cysts. These labs will take about 7-10 days to return. I will contact you with the results. If any results are abnormal you will need to see a local stock chaser here in [place] OR a stock chaser back home in [place]. Finally, your thyroid levels were off severely. Your TSH level was very high (370). These levels will make you feel very poorly (cold, tired all the time, constipated, etc). Please simply resume your thyroid medicines as previous and have your TSH and Free T4 thyroid levels repeated in about 1 month. Recommendations - 1. doxycycline antibiotic -- 100mg twice daily x 5 days, first dose TONIGHT * some people experience stomach upset and/or heartburn from this medicine * if you have heartburn you can take [id number] Pepcid or Prilosec as needed * rarely you can get a rash if you spend a lot of time in the sun while on doxycycline; thus, cover up and use sunscreen well over the next week if you plan to spend time outdoors 2. ondansetron -- 4mg every 6 hours as needed for nausea/vomiting 3. have a repeat chest x-ray in 4-6 weeks to recheck the right lung pneumonia 4. repeat thyroid levels in 4 weeks 5. follow-up - see [facility] in 3-4 days for a recheck 6. Plan to take it easy and focus on good hydration/nutrition over the next week as you recover from your illness; try to avoid other people who are actively sick so that you are not exposed to other germs; if someone visits you who is ill please have them put a mask on 7. If your cough continues to improve I suspect your risk of contagiousness to other people would be pretty low by early this coming week Return to [facility] if - * you have fevers over 100 degrees * you develop severe diarrhea * you develop worsening shortness of breath * any other concerns It was our pleasure to care for you! Pending Studies at Discharge: Yes Studies:: Alpha-1 antitrypsin mutation, BRIDGER-12 panel Stand-Alone Forms: My [facility], Work/School Release, Smoking Cessation Medications and DC Order Prescriptions: New doxycycline hyclate 100 mg Capsule 100 mg PO BID 5 Days Qty: 10 0RF ondansetron 4 mg tablet,disintegrating 4 mg PO Q6H PRN (Reason: nausea and vomiting) Qty: 10 0RF Continued levothyroxine 112 mcg Tablet 112 mcg PO 2XWK Rx Instructions: TAKES THURSDAY & SUNDAYS ONLY pregabalin 300 mg Capsule 600 mg PO HS selpercatinib 80 mg Capsule 160 mg PO BID liothyronine 5 mcg Tablet 10 mcg PO .QPM MON THRU FRI Rx Instructions: 5 days week liothyronine 5 mcg Tablet 5 mcg PO .QAM MON-FRI Rx Instructions: 5 DAYS A WEEK norgestimate-ethinyl estradiol [Aislinn] 0.25-35 mg-mcg Tablet 1 tab PO DAILY Discharge Orders: Discharge Order (Routine); Ordered 05/07/24 Ordered By: Drake Daigle/Other Patient Handouts: Pneumonia Mycoplasma Admission Data Admit Date/Time: 05/05/24 19:28 Attending Provider: Drake Dan Admit Provider: Todd Newberry Primary Care Provider: [facility] Other Providers: Todd Newberry Hospital Stay Data Consultations 05/05/24 18:44 ED Decision to Admit Stat Pending Results Patient Have Any Pending Studies at Discharge: Yes Discharge Instructions Given to Patient (Per Discharging Provider) Ms Kessler, Janes were hospitalized due to right-sided pneumonia. Your respiratory panel showed rhinovirus (a common cold virus) as well as mycoplasma bacteria (see handout). You improved nicely with IV/oral antibiotics. Your oxygen levels were normal throughout your stay. Blood cultures remained negative (no bacteria found in the blood stream). Your chest x-ray as well as previous CT scans of your lungs have showed numerous cysts throughout both lungs. Our stock chaser suggested we check you for various conditions that can cause the cysts. These labs will take about 7-10 days to return. I will contact you with the results. If any results are abnormal you will need to see a local stock chaser here in [place] OR a stock chaser back home in [place]. Finally, your thyroid levels were off severely. Your TSH level was very high (370). These levels will make you feel very poorly (cold, tired all the time, constipated, etc). Please simply resume your thyroid medicines as previous and have your TSH and Free T4 thyroid levels repeated in about 1 month. Recommendations - 1. doxycycline antibiotic -- 100mg twice daily x 5 days, first dose TONIGHT * some people experience stomach upset and/or heartburn from this medicine * if you have heartburn you can take [id number]-[id number] Pepcid or Prilosec as needed * rarely you can get a rash if you spend a lot of time in the sun while on doxycycline; thus, cover up and use sunscreen well over the next week if you plan to spend time outdoors 2. ondansetron -- 4mg every 6 hours as needed for nausea/vomiting 3. have a repeat chest x-ray in 4-6 weeks to recheck the right lung pneumonia 4. repeat thyroid levels in 4 weeks 5. follow-up - see [facility] in 3-4 days for a recheck 6. Plan to take it easy and focus on good hydration/nutrition over the next week as you recover from your illness; try to avoid other people who are actively sick so that you are not exposed to other germs; if someone visits you who is ill please have them put a mask on 7. If your cough continues to improve I suspect your risk of contagiousness to other people would be pretty low by early this coming week Return to [facility] if - * you have fevers over 100 degrees * you develop severe diarrhea * you develop worsening shortness of breath * any other concerns It was our pleasure to care for you! Coding Diagnoses Pneumonia involving right lung J15.7 Lung location: unspecified part of lung Pneumonia type: due to Mycoplasma pneumoniae Mycoplasma pneumonia J15.7 Laterality: right Lung location: unspecified part of lung Rhinovirus infection B34.8 Hypothyroidism E03.9 Hypothyroidism type: unspecified Medullary thyroid carcinoma C73 History of spinal fusion for scoliosis Z98.1; Z87.39 Abnormal chest xray R93.89 Severely underweight adult R63.6
[2024-05-07 11:38] VITALS: PULSE 101
== END 2024-05-07 12:30 | disposition home or self-care (01) | DRG 194 ==
LOC: ED 14:44 → 3N 19:28 → SUATTDRO 19:28 → 3N 21:39